=== PATIENT | male | born 1970 | race Hispanic/Latino ===

== ENCOUNTER 2018-06-13 23:35 | Emergency (ER) | payer OTHER ==
[~2018-06-13] VITALS: Ht 170.2 cm; Wt 179.2 kg
--- OUTSIDE RECORDS SUMMARY | 2018-06-13 23:38 | XMS REPORT ---
Author Author [facility] Address Unknown Phone Unavailable Care Team Providers [facility] [employer] Name Role Phone Unavailable Unavailable Problems This patient has no known problems. Allergies, Adverse Reactions, Alerts This patient has no known allergies or adverse reactions. Medications This patient has no known medications. Encounters Start Date/Time End Date/Time Encounter Type Admission Type Attending [facility] Care Department Encounter ID [id number] 16:05:04 Inpatient [facility] [id number] 2017-03-21 00:00:00 Inpatient [facility] [id number] 2017-03-21 00:00:00 Inpatient [facility] [id number] 2018-04-27 00:00:00 2018-04-27 00:00:00 Outpatient [facility] [id number] 2018-04-11 10:22:32 2018-04-11 10:22:32 Outpatient [facility] [id number] 2018-04-04 11:14:21 2018-04-04 11:14:21 Outpatient [facility] [id number] 2018-03-28 13:26:22 2018-03-28 13:26:22 Outpatient [facility] [id number] 2018-03-21 10:56:46 2018-03-21 10:56:46 Outpatient [facility] [id number] 2018-03-14 00:00:00 2018-03-14 00:00:00 Outpatient [facility] [id number] 2018-03-03 00:00:00 2018-03-03 00:00:00 Outpatient [facility] [id number] 2018-02-22 15:58:47 2018-02-22 15:58:47 Outpatient [facility] [id number] 2018-01-26 00:00:00 2018-01-26 00:00:00 Outpatient [facility] [id number] 2017-12-15 00:00:00 2017-12-15 00:00:00 Outpatient [facility] [id number] 2017-11-21 00:00:00 2017-11-21 00:00:00 Outpatient [facility] [id number] 2017-11-07 15:07:01 2017-11-07 15:07:01 Outpatient [facility] [id number] 2017-11-04 00:00:00 2017-11-04 00:00:00 Outpatient [facility] [id number] 2017 12:44:35 2017 12:44:35 Emergency [facility] [id number] 2017 11:00:23 2017 11:00:23 Inpatient [facility] [id number] 2017-10-14 14:05:53 2017-10-14 14:05:53 Emergency [facility] [id number] 2017-10-14 11:40:52 2017-10-14 11:40:52 Emergency [facility] [id number] 2017-10-12 15:24:13 2017-10-12 15:24:13 Outpatient [facility] [id number] 2017-07-27 00:00:00 2017-07-27 00:00:00 Outpatient [facility] [id number] 2017-06-03 14:18:41 2017-06-03 14:18:41 Outpatient [facility] [id number] 2017-06-02 15:20:29 2017-06-02 15:20:29 Outpatient [facility] [id number] 2017-05-05 09:23:41 2017-05-05 09:23:41 Emergency [facility] [id number] 2017-05-05 08:32:44 2017-05-05 08:32:44 Emergency [facility] [id number] 2017-04-11 00:00:00 2017-04-11 00:00:00 Outpatient [facility] [id number] 2017-04-01 00:00:00 2017-04-01 00:00:00 Outpatient [facility] [id number] 2017-03-31 12:28:39 2017-03-31 12:28:39 Outpatient [facility] [id number] 2017-03-31 10:46:04 2017-03-31 10:46:04 Outpatient [facility] [id number] 2017-03-23 15:39:37 2017-03-23 00:00:00 Inpatient [facility] [id number] 2017-03-18 09:56:26 2017-03-18 09:56:26 Outpatient [facility] [id number] 2017-03-18 05:59:51 2017-03-18 05:59:51 Emergency [facility] [id number] 2017-03-18 03:03:05 2017-03-18 03:03:05 Inpatient [facility] [id number] 2017-02-25 00:00:00 2017-02-25 00:00:00 Outpatient [facility] [id number] 2017-02-21 00:00:00 2017-02-21 00:00:00 Outpatient [facility] [id number] 2017-02-18 11:23:21 2017-02-18 11:23:21 Outpatient [facility] [id number] 2017-02-14 00:00:00 2017-02-14 00:00:00 Outpatient [facility] [id number] 2017-01-13 00:00:00 2017-01-13 00:00:00 Outpatient [facility] [id number] 2017-01-06 00:00:00 2017-01-06 00:00:00 Outpatient [facility] [id number] 2017-01-03 00:00:00 2017-01-03 00:00:00 Outpatient [facility] [id number] 2016-10-04 15:39:58 2016-10-04 15:39:58 Outpatient [facility] [id number] 2015-03-24 11:46:04 2015-03-24 11:46:04 Outpatient [facility] [id number]
[2018-06-14] MEDS ORDERED: RIVAROXABAN 20 MG TABLET PO ONE
[2018-06-14 00:22] LABS: BASOPHILS % 0.4 % (0.0-1.0); EOSINOPHILS # (AUTO) 0.3 (0.0-0.4); HEMATOCRIT 44.9 % (38.2-49.6); HEMOGLOBIN 13.8 g/dL (14.0-18.0); LYMPHOCYTES % 20.9 % (18.0-39.1); MEAN CORPUSCULAR HEMOGLOBIN 27.4 pg (28-32); MEAN CORPUSCULAR HGB CONC 30.7 g/dL (31-35); MEAN CORPUSCULAR VOLUME 89.3 fL (81-99); MONOCYTES # (AUTO) 0.9 (0.2-0.8); MONOCYTES % 9.6 % (4.4-11.3); NEUTROPHILS # (AUTO) 6.4 (2.1-6.9); NEUTROPHILS % 65.6 % (38.7-80.0); PLATELET COUNT 219 x10e3/uL (140-360); RED BLOOD COUNT 5.03 x10e6/uL (4.3-5.7); RED CELL DISTRIBUTION WIDTH 15.1 % (11.7-14.4)
[2018-06-14 00:35] LABS: ALANINE AMINOTRANSFERASE 30 IU/L (0-55); ALBUMIN 3.4 g/dL (3.5-5.0); ALKALINE PHOSPHATASE 101 IU/L (40-150); BLOOD UREA NITROGEN 22 mg/dL (7-26); BUN/CREATININE RATIO 20 (6-25); CALCIUM 9.5 mg/dL (8.4-10.2); CARBON DIOXIDE 28 mmol/L (22-29); CHLORIDE 100 mmol/L (98-107); CREATINE KINASE 355 IU/L (30-200); CREATININE, SERUM 1.11 mg/dL (0.72-1.25); EST GLOMERULAR FILTRATION RATE > 60 ML/MIN (60-); GLUCOSE 115 mg/dL (74-118); SODIUM 138 mmol/L (136-145)
--- NOTE | 2018-06-14 01:04 | Diagnostic Imaging Report ---
EXAMINATION: CHEST SINGLE (PORTABLE) INDICATION: ^sob ^[id number] ^[id number] ^Y COMPARISON: None FINDINGS: AP view TUBES and LINES: None. LUNGS: Limited by body habitus. Lungs are well inflated. Central peribronchovascular thickening/cuffing and mild interstitial edema. PLEURA: No significant pleural effusion or pneumothorax. HEART AND MEDIASTINUM: The cardiomediastinal silhouette is enlarged. BONES AND SOFT TISSUES: No acute osseous lesion. Soft tissues are unremarkable. UPPER ABDOMEN: No free air under the diaphragm. IMPRESSION: Enlarged cardiac silhouette, central vascular congestion, and mild interstitial edema. Signed by: Dr. Hernandez Fraser MD on 06/14/2018 1:01 AM
[2018-06-14] MEDS ORDERED: FUROSEMIDE INJ 10 MG/ML 4 ML VIAL IV ONE (01:30)
== END 2018-06-14 01:40 | disposition home or self-care (01) ==
LOC: ER 23:35
DX: R06.00 Dyspnea, unspecified (principal); I50.22 Chronic systolic (congestive) heart failure; I50.1 Left ventricular failure, unspecified; I27.9 Pulmonary heart disease, unspecified
CPT/HCPCS: 36415; 71045; 80053; 82550; 82553; 83880; 84484; 85025; 93005; 99283; J1940

== ENCOUNTER 2018-08-19 10:01 | Emergency (ER) | payer OTHER ==
[~2018-08-19] VITALS: Ht 170.2 cm; Wt 181.4 kg
[2018-08-19] MEDS ORDERED: HYDROCODONE/APAP 10MG-325MG TAB PO ONE (10:30)
--- NOTE | 2018-08-19 10:43 | Diagnostic Imaging Report ---
LEFT ANKLE X-RAY - 3 VIEWS HISTORY: ^r/o fx ^[id number] ^[id number] COMPARISON: None available. FINDINGS: Bones: No acute displaced fracture. Osseous alignment is within normal limits. Joints: The joint spaces are well-maintained. Soft tissues: Soft tissue swelling surrounding the ankle. IMPRESSION: Soft tissue swelling surrounding the left ankle without acute bony abnormalities. Signed by: Dr. Johana Chang M.D. on 08/19/2018 10:40 AM
[2018-08-19 11:22] VITALS: BP 106/81
== END 2018-08-19 11:22 | disposition home or self-care (01) ==
LOC: ER 10:01
DX: S93.492A Sprain of other ligament of left ankle, initial encounter (principal); X50.1XXA Overexertion from prolonged static or awkward postures, initial encounter; Y92.008 Other place in unspecified non-institutional (private) residence as the place of occurrence of the external cause; I10 Essential (primary) hypertension; E78.5 Hyperlipidemia, unspecified; I48.91 Unspecified atrial fibrillation; M10.9 Gout, unspecified
CPT/HCPCS: 99283

== ENCOUNTER 2018-08-28 03:09 | Observation (INO) | payer OTHER ==
[~2018-08-28] VITALS: Ht 170.2 cm; Wt 194.1 kg
[2018-08-28] VITALS (9 sets, daily range): BP systolic 128–159; BP diastolic 70–89
[2018-08-28 03:48] LABS: BASOPHILS % 0.3 % (0.0-1.0); EOSINOPHILS # (AUTO) 0.3 (0.0-0.4); EOSINOPHILS % 2.8 % (0.0-6.0); HEMATOCRIT 44.2 % (38.2-49.6); HEMOGLOBIN 13.1 g/dL (14.0-18.0); LYMPHOCYTES # (AUTO) 2.2 (1.0-3.2); LYMPHOCYTES % 20.8 % (18.0-39.1); MEAN CORPUSCULAR HEMOGLOBIN 27.3 pg (28-32); MEAN CORPUSCULAR HGB CONC 29.6 g/dL (31-35); MEAN CORPUSCULAR VOLUME 92.1 fL (81-99); MONOCYTES % 9.7 % (4.4-11.3); NEUTROPHILS # (AUTO) 6.9 (2.1-6.9); NEUTROPHILS % 65.8 % (38.7-80.0); PLATELET COUNT 216 x10e3/uL (140-360); RED CELL DISTRIBUTION WIDTH 14.2 % (11.7-14.4)
[2018-08-28 04:07] LABS: ALANINE AMINOTRANSFERASE 30 IU/L (0-55); ALBUMIN 3.2 g/dL (3.5-5.0); ALBUMIN/GLOBULIN RATIO 0.8 (0.8-2.0); ALKALINE PHOSPHATASE 114 IU/L (40-150); ANION GAP 12.3 mmol/L (8-16); BLOOD UREA NITROGEN 22 mg/dL (7-26); BUN/CREATININE RATIO 19 (6-25); CALCIUM 9.6 mg/dL (8.4-10.2); CARBON DIOXIDE 31 mmol/L (22-29); CHLORIDE 99 mmol/L (98-107); CREATINE KINASE 334 IU/L (30-200); CREATININE, SERUM 1.15 mg/dL (0.72-1.25); EST GLOMERULAR FILTRATION RATE > 60 ML/MIN (60-); GLUCOSE 144 mg/dL (74-118); POTASSIUM 4.3 mmol/L (3.5-5.1); SODIUM 138 mmol/L (136-145)
[2018-08-28] MEDS ORDERED: ATORVASTATIN CA40 MG PO (04:12)
[2018-08-28] MEDS ORDERED: LEVOTHYROXINE25 MCG PO (04:12)
[2018-08-28] MEDS ORDERED: METOPROLOL SUCC50 MG PO (04:12)
[2018-08-28] MEDS ORDERED: LISINOPRIL20 MG PO (04:12)
[2018-08-28] MEDS ORDERED: SPIRONOLACTONE25 MG PO (04:12)
[2018-08-28] MEDS ORDERED: DIGOXIN125 MCG PO (04:12)
[2018-08-28] MEDS ORDERED: XARELTO20 MG PO (04:12)
[2018-08-28] MEDS ORDERED: ALLOPURINOL100 MG PO (04:12)
--- NOTE | 2018-08-28 04:14 | Diagnostic Imaging Report ---
EXAMINATION: CHEST 2 VIEWS INDICATION: ^CHEST PAIN ^[id number] ^[id number] ^Y COMPARISON: 06/14/2018 FINDINGS: PA and lateral views TUBES and LINES: None. LUNGS: Lungs are well inflated. Central vascular congestion. PLEURA: No pleural effusion or pneumothorax. HEART AND MEDIASTINUM: The cardiomediastinal silhouette is enlarged. BONES AND SOFT TISSUES: Degenerative changes of thoracic spine. Age indeterminate anterior wedge deformities of the lower thoracic/upper lumbar vertebral bodies. Soft tissues are unremarkable. UPPER ABDOMEN: No free air under the diaphragm. IMPRESSION: Enlarged cardiomediastinal silhouette and central vascular congestion. Signed by: Dr. Hernandez Fraser MD on 08/28/2018 4:10 AM
--- NOTE | 2018-08-28 04:26 | NUR ---
RESP CALLED FOR DUONEB TREATMENT
[2018-08-28] MEDS ORDERED: FUROSEMIDE INJ 10 MG/ML 4 ML VIAL IV ONE (04:30)
[2018-08-28] MEDS ORDERED: METHYLPREDNISOLONE SOD SUCC 125 MG/2ML VIAL IV ONE (04:30)
[2018-08-28] MEDS ORDERED: ALBUTEROL/IPRATROPIUM 3 ML NEB NEB ONE (04:30)
[2018-08-28] MEDS ORDERED: METHYLPREDNISOLONE SOD SUCC 125 MG/2ML VIAL ONE (04:31)
[2018-08-28] MEDS ORDERED: FUROSEMIDE INJ 10 MG/ML 2 ML VIAL ONE (04:32)
[2018-08-28] MEDS ORDERED: IPRATROPIUM BROMIDE 0.02% 2.5 ML NEB ONE (04:37)
[2018-08-28] MEDS ORDERED: ALBUTEROL SULF 0.083% NEB SOLN 3 ML NEB ONE (04:37)
[2018-08-28] MEDS ORDERED: FUROSEMIDE40 MG PO (04:39)
[2018-08-28] MEDS ORDERED: ASPIRIN 81 MG CHEW TAB PO ONE (04:45)
--- OUTSIDE RECORDS SUMMARY | 2018-08-28 04:52 | XMS REPORT | Clinical Summary ---
Author Author [facility] Organization [facility] Address Unknown Phone Unavailable Care Team Providers Care Blue Print Control Clerk Name Role Phone Roberto Carlos Vidales MD PCP Allergies No Known Allergies Medications End Date Status Medication Sig Dispensed Refills Start Date Active aspirin (ASPIRIN) 81 mg Chew and 90 tablet 3 chewable swallow 1 7 tabletIndications: Acute tablet by systolic CHF (congestive mouth daily. heart failure) Active furosemide (LASIX) 20 mg Take 3 180 tablet 1 tabletIndications: Acute tablets by 8 on chronic systolic heart mouth every failure, NYHA class 3 12 hours. Active BPAP DeviceIndications: Use device as 1 Device 0 Obesity hypoventilation directed. 8 syndrome, Obstructive Date of sleep apnea Study: 05/29/2015 Diagnosis: JERI 327.23, OHS with severe hypoventilati on during sleep AHI:90 SaO2 bryon: 77 BPAP Pressure: 24/18 cm H2O with heated humidifier: Yes with mask (fit to patient) and supplies as needed: Yes Chin Strap: Yes. Active spironolactone Take 1 tablet 90 tablet 3 (ALDACTONE) 25 mg by mouth 8 tabletIndications: Acute daily. on chronic systolic heart failure, NYHA class 3 Active digoxin (LANOXIN) 125 mcg Take 1 tablet 90 tablet 3 tabletIndications: Atrial by mouth 8 fibrillation with rapid daily. ventricular response Active lisinopril (PRINIVIL, Take 1 tablet 90 tablet 2 ZESTRIL) 20 mg by mouth 8 tabletIndications: Acute daily. systolic CHF (congestive heart failure) Active atorvastatin (LIPITOR) 40 Take 1 tablet 90 tablet 1 mg tabletIndications: by mouth at 8 Heart failure, chronic bedtime systolic nightly. Active levothyroxine (SYNTHROID) Take 1 tablet 90 tablet 3 25 mcg tabletIndications: by mouth 8 Acquired hypothyroidism every morning (before breakfast). Active metoprolol succinate Take 1 tablet 30 tablet 1 (TOPROL XL) 50 mg by mouth 8 extended release daily. tabletIndications: Atrial fibrillation with rapid ventricular response Active allopurinol (ZYLOPRIM) Take 2 60 tablet 1 100 mg tabletIndications: tablets by 8 Atrial fibrillation with mouth daily. rapid ventricular response Active warfarin (COUMADIN) 5 mg Take 1 tablet 50 tablet 1 tablet (5mg) on Mon 8 and Sun then take 1 and 1/2 tablet (7.5mg) the rest of the days of the week. 10/21/2017 Discontinued BPAP DeviceIndications: Use device as 1 Device 0 Obesity hypoventilation directed. 6 syndrome, Obstructive Date of sleep apnea Study: 05/29/2015 Diagnosis: JERI 327.23, OHS with severe hypoventilati on during sleep AHI:90 SaO2 bryon: 77 BPAP Pressure: 24/18 cm H2O with heated humidifier: Yes with mask (fit to patient) and supplies as needed: Yes Chin Strap: Yes. 2017 Discontinued polyethylene glycol Add lukewarm 4000 mL 0 (GOLYTELY) [id number] drinking 6 -5.86 gram oral water to the solutionIndications: On fill alphonse (4 anticoagulant therapy liters) and shake. Drink as directed by your doctor.. 11/11/2017 Discontinued levothyroxine (SYNTHROID) Take 1 tablet 90 tablet 3 25 mcg tabletIndications: by mouth 7 Acquired hypothyroidism every morning (before breakfast). 11/07/2017 Discontinued atorvastatin (LIPITOR) 40 Take 1 tablet 90 tablet 3 mg tabletIndications: by mouth at 7 Acute on chronic systolic bedtime heart failure, NYHA class nightly. 3 10/31/2017 Discontinued spironolactone Take 1 tablet 90 tablet 3 (ALDACTONE) 25 mg by mouth 7 tabletIndications: Acute daily. on chronic systolic heart failure, NYHA class 3 10/21/2017 Discontinued lisinopril (PRINIVIL, Take 1 tablet 90 tablet 2 ZESTRIL) 20 mg by mouth 7 tabletIndications: Acute daily. systolic CHF (congestive heart failure) 10/31/2017 Discontinued digoxin (LANOXIN) 125 mcg Take 1 tablet 90 tablet 3 tabletIndications: Atrial by mouth 7 fibrillation with rapid daily. ventricular response 10/21/2017 Discontinued metoprolol succinate Take 1 tablet 90 tablet 2 (TOPROL XL) 100 mg by mouth 7 extended release daily. tabletIndications: Atrial fibrillation with rapid ventricular response 10/21/2017 Discontinued colchicine (COLCRYS) 0.6 One tablet 45 tablet 0 mg tabletIndications: daily for 1 7 Gout, arthritis week with allopurinol and then stop it and take it only as need for acute gouty attack. 10/21/2017 Discontinued rivaroxaban (XARELTO) 20 Take 1 tablet 90 tablet 1 mg tabletIndications: by mouth 7 Atrial fibrillation with daily (with rapid ventricular dinner). response 10/21/2017 Discontinued pantoprazole (PROTONIX) Take 1 tablet 90 tablet 3 40 mg delayed release by mouth 7 tabletIndications: every morning Chronic gastric ulcer (before with hemorrhage breakfast). 10/21/2017 Discontinued furosemide (LASIX) 20 mg Take 3 180 tablet 1 tabletIndications: Acute tablets by 7 on chronic systolic heart mouth every failure, NYHA class 3 12 hours. 10/21/2017 Discontinued acetaminophen-codeine Take 1 tablet 30 tablet 0 (TYLENOL/CODEINE #3) by mouth 2 7 300-30 mg per times daily tabletIndications: S/P as needed for laparoscopic Pain. cholecystectomy 10/21/2017 Discontinued allopurinol (ZYLOPRIM) Take 2 180 tablet 1 100 mg tabletIndications: tablets by 7 Gout involving toe of mouth daily. left foot, unspecified cause, unspecified chronicity 2017 Discontinued predniSONE (DELTASONE) 10 Take 4 tabs 30 tablet 0 mg tabletIndications: daily for 3 8 Acute cholecystitis days then 3 tabs daily for 3 days then 2 tabs daily for 3 days then 1 day daily for 3 days then stop.. 10/21/2017 Discontinued HYDROcodone-acetaminophen Take 1 tablet 40 tablet 0 (NORCO) 10-325 mg by mouth 8 tabletIndications: Acute every 6 hours pain of left knee as needed for Pain. [facility]# [id number] 10/21/2017 Discontinued cephALEXin (KEFLEX) 500 Take 1 40 capsule 0 mg capsuleIndications: capsule by 8 Cellulitis of right lower mouth 4 times extremity daily for 10 days. 02/22/2018 Discontinued allopurinol (ZYLOPRIM) Take 2 60 tablet 1 100 mg tabletIndications: tablets by 8 Cellulitis of right lower mouth daily. leg 10/31/2017 clindamycin (CLEOCIN) 150 Take 3 90 capsule 0 mg capsuleIndications: capsules by 8 Cellulitis of right lower mouth 3 times leg daily for 10 days. 10/31/2017 Discontinued lisinopril (PRINIVIL, Take 1 tablet 90 tablet 2 ZESTRIL) 20 mg by mouth 8 tabletIndications: Acute daily. systolic CHF (congestive heart failure) 02/22/2018 Discontinued metoprolol succinate Take 1 tablet 30 tablet 1 (TOPROL XL) 50 mg by mouth 8 extended release daily. tabletIndications: Atrial fibrillation with rapid ventricular response 02/22/2018 Discontinued rivaroxaban (XARELTO) 20 Take 1 tablet 90 tablet 1 mg tabletIndications: by mouth 8 Atrial fibrillation with daily (with rapid ventricular dinner). response 03/14/2018 Discontinued rivaroxaban (XARELTO) 20 Take 1 tablet 90 tablet 1 mg tabletIndications: by mouth 8 Atrial fibrillation with daily (with rapid ventricular dinner). response 03/28/2018 Discontinued warfarin (COUMADIN) 5 mg Take 1 tablet 30 tablet 0 tablet by mouth 8 daily for 30 days. 04/04/2018 Discontinued warfarin (COUMADIN) 5 mg Take 1 and 35 tablet 0 tablet 1/2 tablet 8 (7.5mg) by mouth on Tu and 1 tablet (5mg) the rest of the week. 04/11/2018 Discontinued warfarin (COUMADIN) 5 mg Take 1 and 45 tablet 1 tablet 1/2 tablet 8 (7.5mg) by mouth on , Tue, and Th and 1 tablet (5mg) the rest of the week.. Active Problems Problem Noted Date Infection 2017 Cellulitis of right lower extremity 10/14/2017 Acute pain of left knee 05/05/2017 Gout, arthritis 07/01/2016 Essential hypertension 05/23/2013 Iron deficiency anemia 04/12/2012 Overview: 07/14/12 - Received request for outside patient service (Video Capsule Endoscopy) from Dr. Mandie Meeks. EGD & Colonoscopy done on 10/03/09. Meets criteria for outsourcing of procedure. Approved for scheduling Video Capsule Endoscopy @ [facility]. Physician order, demographics & clinical information faxed to [facility] Scheduling Department. Preeti Smart RN # [id number] 07/18/12- spoke to patient, informed of the scheduled VCE 08/01/12@07:00; reconfirmed home address; processed certified mail with all the needed informations for the procedure. Chela Benson [id number] 08/14/12 - received capsule report today after reading by Dr. Jeramy Alvarez @ [facility] & being placed in the Media tab of this record. Dr. Mandie Meeks Rider included in the e-mail from [facility]. Preeti Smart RN # [id number] Obesity, morbid (more than 100 lbs over ideal weight or BMI > 40) 10/08/2009 Tobacco dependence 10/08/2009 Lower extremity edema Gastric ulcer Left ventricular dilatation Cardiomegaly Pulmonary edema Knee effusion, right Heart failure, chronic systolic Cardiomyopathy Chronic gout without tophus Atrial fibrillation, chronic Current use of ocean transportation intermediary anticoagulation JERI (obstructive sleep apnea) Hypothyroidism Morbid obesity with BMI of 60.0-69.9, adult Cellulitis of right lower leg Cellulitis and abscess of leg Resolved Problems Problem Noted Date Resolved Date RUQ pain 03/18/2017 2017 Calculus of gallbladder with acute cholecystitis without obstruction 03/18/2017 2017 Cholecystitis 03/18/2017 2017 Overview: Added automatically from request for surgery [id number] Acute exacerbation of congestive heart failure 06/30/2016 2017 Acute on chronic systolic heart failure, NYHA class 3 06/29/2016 2017 Dyspnea 06/29/2016 2017 Chest pain in adult 06/28/2016 2017 Hematochezia 12/04/2015 2017 Overview: S/p colonoscopy (11/2015). Recommend repeating colonoscopy in 10yrs and forgo annual FIT in the interim. Rectal bleeding 12/01/2015 2017 Chest pain 02/28/2015 2017 Acute systolic CHF (congestive heart failure) 02/07/2015 2017 Atrial fibrillation with rapid ventricular response 02/06/2015 2017 Acute on chronic systolic congestive heart failure 2017 Shortness of breath 2017 Acute idiopathic gout of right knee 2017 Pre-operative evaluation for tubal ligation 2017 Hyponatremia 2017 Encounters Care Team Description Date Type Specialty Lroa Todd, RPH Anticoagulation monitoring, INR range 2-3 (Primary Dx) 04/11/2018 Office Visit Clinical Pharmacy Lora Todd, RPH Anticoagulation monitoring, INR range 2-3 (Primary Dx) 04/04/2018 Office Visit Clinical Pharmacy Lora Todd, RPH Anticoagulation monitoring, INR range 2-3 (Primary Dx) 03/28/2018 Office Visit Clinical Pharmacy 03/28/2018 Travel Lora Todd, RPH Anticoagulation monitoring, INR range 2-3 (Primary Dx) 03/21/2018 Office Visit Clinical Pharmacy Lora Todd, RPH 03/14/2018 Orders Only Clinical Pharmacy Lorena Vigil MD Atrial fibrillation with rapid ventricular response, stable, on anticoagulation 03/14/2018 Refill [facility] Lorena Vigil MD Atrial fibrillation with rapid ventricular response, stable, on anticoagulation 03/14/2018 Refill Family Practice Preeti Patel RN Information Only 03/03/2018 Telephone [facility] Roberto Carlos Vidales MD Joad, Sabaa S, MD Need for influenza vaccination (Primary Dx); Atrial fibrillation with rapid ventricular response, stable, on anticoagulation; History of gout 02/22/2018 Office Visit Family Practice Roberto Carlos Vidales MD Acquired hypothyroidism 11/11/2017 Refill [facility] Roberto Carlos Vidales MD Joad, Sabaa S, MD Prediabetes (Primary Dx); Heart failure, chronic systolic; Hypotension due to drugs 11/07/2017 Office Visit Family Practice Ayala Zimmerman, RPH Anticoagulation 11/02/2017 Telephone Roberto Carlos Vidales MD Acute on chronic systolic heart failure, NYHA class 3; Atrial fibrillation with rapid ventricular response, stable, on anticoagulation; Acute systolic CHF (congestive heart failure) 10/31/2017 Refill Family Practice Alonso Baylee York Transitional Planning 10/27/2017 Telephone Social Work Roberto Carlos Vidales MD Atrial fibrillation with rapid ventricular response, stable, on anticoagulation; Acute on chronic systolic heart failure, NYHA class 3 10/26/2017 Refill Family Practice Clive Verde Transitional Planning 10/25/2017 Telephone Social Work Bob Carranza MD Bull, Joan M, MD Cellulitis of right lower leg (Primary Dx); Heart failure, chronic systolic; Acute on chronic systolic heart failure, NYHA class 3; Acute systolic CHF (congestive heart failure); Atrial fibrillation with rapid ventricular response, stable, on anticoagulation; Obesity hypoventilation syndrome; Obstructive sleep apnea 2017 Hospital - Encounter 10/21/2017 Clayton Noe MD Cellulitis of right lower extremity (Primary Dx); Lower extremity edema 10/14/2017 Emergency Emergency Medicine Sharri Garza MD Hypocalcemia (Primary Dx); Acute on chronic systolic heart failure, NYHA class 3; BMI 60.0-69.9, adult; Prediabetes 10/12/2017 Office Visit Family Practice after 08/27/2017 Immunizations Name Dates Previously Given Next Due Influenza Vaccine 04/01/2015 (Deferred: Patient Refused), 03/01/2015 (Deferred: Patient Refused - patient does not want the flu vaccine for now, he stated he will get it in his PCP appoinment), 02/21/2013, 03/06/2012 Influenza Vaccine, 03/31/2017 (Deferred: Patient Refused) Seasonal, Injectable PPV 23 Pneumococcal 07/26/2010 Polysaccaride Tdap Tetanus, diphtheria, 03/04/2015 acellular pertussis Vaccine Family History Medical History Relation Name Comments Genetic Father Heart Father Diabetes Mother Relation Name Status Comments Brother Alive Brother Alive Brother Alive Brother Alive Brother Alive Brother Alive Brother Alive Brother Alive Father Alive Maternal Grandfather Maternal Grandmother Mother Alive Paternal Grandfather Paternal Grandmother Sister Alive x3 Sister Alive Sister Alive Sister Alive Sister Alive Son Alive x3 Son Alive Son Alive Social History Date Tobacco Use Types Packs/Day Years Used Quit: 01/05/2012 Current Some Day Smoker Cigarettes 0.25 Smokeless Tobacco: Snuff Current User Tobacco Cessation: Ready to Quit: No; Counseling Given: No Alcohol Use Drinks/Week oz/Week Comments Yes 0 Glasses of 7.2 wine 12 Cans of beer 0 Shots of liquor Sex Assigned at Date Recorded Not on file Industry Job Start Date Occupation Not on file Not on file Not on file Travel End Travel History Travel Start No recent travel history available. Last Filed Vital Signs Time Taken Vital Sign Reading 04/11/2018 10:22 AM BUSINESS APPLICATIONS MANAGER Blood Pressure 136/89 04/11/2018 10:22 AM BUSINESS APPLICATIONS MANAGER Pulse 81 04/11/2018 10:22 AM BUSINESS APPLICATIONS MANAGER Temperature 36.6 C (97.9 F) 04/11/2018 10:22 AM BUSINESS APPLICATIONS MANAGER Respiratory Rate 18 10/21/2017 12:32 AM CDT Oxygen Saturation 98% - Inhaled Oxygen - Concentration 04/11/2018 10:22 AM BUSINESS APPLICATIONS MANAGER Weight 187.8 kg (414 lb) 04/11/2018 10:22 AM BUSINESS APPLICATIONS MANAGER Height 170.2 cm (5' 7") 04/11/2018 10:22 AM BUSINESS APPLICATIONS MANAGER Body Mass Index 64.84 Plan of Treatment Not on file Procedures Comments Procedure Name Priority Date/Time Associated Diagnosis PTINR POC Routine 04/11/2018 10:43 AM BUSINESS APPLICATIONS MANAGER PTINR POC Routine 04/04/2018 11:34 AM BUSINESS APPLICATIONS MANAGER PTINR POC Routine 03/28/2018 1:42 PM BUSINESS APPLICATIONS MANAGER PHOSPHORUS STAT 10/21/2017 12:50 PM CDT GLUCOSE POC Routine 10/21/2017 11:23 AM CDT GLUCOSE POC Routine 10/21/2017 7:29 AM CDT MAGNESIUM Routine 10/21/2017 4:20 AM CDT PHOSPHORUS Routine 10/21/2017 4:20 AM CDT CALCIUM, IONIZED Routine 10/21/2017 4:20 AM CDT BASIC METABOLIC PANEL Routine 10/21/2017 4:20 AM CDT CBC Routine 10/21/2017 4:20 AM CDT GLUCOSE POC Routine 10/20/2017 8:18 PM CDT GLUCOSE POC Routine 10/20/2017 4:34 PM CDT HEMOGLOBIN A1C STAT 10/20/2017 12:10 PM CDT GLUCOSE POC Routine 10/20/2017 11:49 AM CDT GLUCOSE POC Routine 10/20/2017 7:18 AM CDT BASIC METABOLIC PANEL Routine 10/20/2017 4:46 AM CDT CBC/DIFF Routine 10/20/2017 4:46 AM CDT GLUCOSE POC Routine 10/19/2017 9:11 PM CDT GLUCOSE POC Routine 10/19/2017 4:23 PM CDT 12 LEAD EKG Routine 10/19/2017 12:07 PM CDT GLUCOSE POC Routine 10/19/2017 11:57 AM CDT GLUCOSE POC Routine 10/19/2017 7:26 AM CDT URIC ACID Routine 10/19/2017 5:08 AM CDT FREE T4 Routine 10/19/2017 5:08 AM CDT MAGNESIUM Routine 10/19/2017 5:08 AM CDT PHOSPHORUS Routine 10/19/2017 5:08 AM CDT BASIC METABOLIC PANEL Routine 10/19/2017 5:08 AM CDT CBC/DIFF Routine 10/19/2017 5:08 AM CDT GLUCOSE POC Routine 2017 9:27 PM CDT SEQUENTIAL COMPRESSION STAT 2017 PUMP 7:53 PM CDT IP CONSULT WITH INSIGHT Routine 2017 6:20 PM CDT GLUCOSE POC Routine 2017 4:46 PM CDT XRAY CHEST 1 VIEW Routine 2017 Heart failure, chronic 4:22 PM CDT systolic CRP, HIGH SENS Routine 2017 2:19 PM CDT SED RATE Routine 2017 2:19 PM CDT TSH Routine 2017 2:19 PM CDT MAGNESIUM Routine 2017 2:19 PM CDT PHOSPHORUS Routine 2017 2:19 PM CDT CALCIUM, IONIZED Routine 2017 2:19 PM CDT COMPREHENSIVE METABOLIC Routine 2017 PANEL(DBIL NOT INCLUDED) 2:19 PM CDT XRAY TIBIA AND FIBULA 2 STAT 2017 Cellulitis of right lower VIEWS 12:45 PM CDT leg VBG POC Routine 2017 11:56 AM CDT BMP POC Routine 2017 11:56 AM CDT CBC/DIFF Routine 2017 11:47 AM CDT HIV-1/HIV-2 ROUTINE STAT 2017 SCREENING 11:47 AM CDT BLOOD CULTURE STAT 2017 11:47 AM CDT BLOOD CULTURE STAT 2017 11:47 AM CDT DUPLEX DOPPLER LOWER STAT 10/14/2017 EXTREMITY VENOUS, 3:22 PM CDT UNILATERAL OR LIMITED BMP POC Routine 10/14/2017 2:10 PM CDT VBG POC Routine 10/14/2017 2:10 PM CDT CKMB, REFLEX Routine 10/14/2017 2:00 PM CDT CBC/DIFF STAT 10/14/2017 2:00 PM CDT CK, TOTAL STAT 10/14/2017 2:00 PM CDT BMP POC Routine 10/12/2017 4:04 PM CDT after 08/27/2017 Results * PTINR POC (04/11/2018 10:43 AM BUSINESS APPLICATIONS MANAGER) Only the most recent of 3 results within the time period is included. PT POC 14.9 (H) 10.9 - 13.0 Seconds [facility] INR POC 1.3 Therap Range [facility] Comment: SUGGESTED THERAPEUTIC RANGES: INR 2.0-3.0 for MODERATE INTENSITY ANTICOAGULATION INR 2.5-3.5 for HIGH INTENSITY ANTICOAGULATION Performing Organization Address [facility] Phone Number [facility] * PHOSPHORUS (10/21/2017 12:50 PM CDT) Only the most recent of 4 results within the time period is included. Phosphorus 4.2 2.5 - 4.9 mg/dL [facility] MAIN-STATION 2 Specimen Blood Performing Organization Address [facility] Phone Number [email or web address] MAIN-STATION 2 * GLUCOSE POC (10/21/2017 11:23 AM CDT) Only the most recent of 12 results within the time period is included. Glucose POC 100 74 - 106 mg/dL [facility] MAIN-STATION 1 Performing Organization Address City/[facility] Phone Number [email or web address] MAIN-STATION 1 * MAGNESIUM (10/21/2017 4:20 AM CDT) Only the most recent of 3 results within the time period is included. Magnesium 2.3 1.8 - 2.4 mg/dL [facility] MAIN-STATION 4 Specimen Blood Performing Organization Address [facility] Phone Number [email or web address] MAIN-STATION 4 * CALCIUM, IONIZED (10/21/2017 4:20 AM CDT) Only the most recent of 2 results within the time period is included. Calcium, 1.11 (L) 1.15 - 1.29 mmol/L [facility] Ionized MAIN-STATION 2 Specimen Blood Performing Organization Address [facility] Phone Number [facility] MAIN-STATION 2 * CBC (10/21/2017 4:20 AM CDT) WBC 11.1 4.5 - 12.0 K/uL [facility] MAIN-STATION 2 RBC 4.65 4.60 - 6.20 M/uL [facility] MAIN-STATION 2 Hemoglobin 12.8 (L) 14.0 - 18.0 g/dL [facility] MAIN-STATION 2 Hematocrit 43.1 40.0 - 54.0 % [facility] MAIN-STATION 2 MCV 93 (H) 82 - 92 fL [facility] MAIN-STATION 2 MCH 27.5 27.0 - 31.0 pg [facility] MAIN-STATION 2 MCHC 29.7 (L) 32.0 - 36.0 g/dL [facility] MAIN-STATION 2 RDW 46.7 (H) 35.1 - 43.9 fL [facility] MAIN-STATION 2 Platelet 275 150 - 400 K/uL [facility] MAIN-STATION 2 Mean Platelet 9.9 9.4 - 12.4 fL [facility] Volume MAIN-STATION 2 Percent NRBC 0.0 [facility] MAIN-STATION 2 Absolute NRBC 0.00 [facility] MAIN-STATION 2 Specimen Blood Performing Organization Address [facility] Phone Number [facility] MAIN-STATION 2 * BASIC METABOLIC PANEL (10/21/2017 4:20 AM CDT) Only the most recent of 3 results within the time period is included. CO2 32 21 - 32 mmol/L [facility] MAIN-STATION 4 Chloride 96 (L) 98 - 107 mmol/L [facility] MAIN-STATION 4 Potassium 4.3 3.50 - 5.10 mmol/L [facility] MAIN-STATION 4 Sodium 134 (L) 136 - 145 mmol/L [facility] MAIN-STATION 4 Glucose 94 70 - 99 mg/dL [facility] MAIN-STATION 4 Urea Nitrogen 18 7 - 18 mg/dL [facility] MAIN-STATION 4 Creatinine 0.99 0.60 - 1.30 mg/dL [facility] MAIN-STATION 4 Anion Gap 6 [facility] MAIN-STATION 4 Calcium 9.1 8.50 - 10.20 mg/dL [facility] MAIN-STATION 4 GFR, Estimated >60 mL/min/1.73 m2 [facility] MAIN-STATION 4 GFR, Estim, >60 mL/min/1.73 m2 [facility] Afr-Am MAIN-STATION 4 Specimen Blood Performing Organization Address [facility]/Zipcode Phone Number MISYS [facility] MAIN-STATION 4 * HEMOGLOBIN A1C (10/20/2017 12:10 PM CDT) Hemoglobin A1c 6.5 (H) 4.3 - 6.1 % [facility] MAIN-STATION 1 Est Average 139.9 mg/dL [facility] MAIN-STATION 1 Specimen Blood Performing Organization Address [facility] Phone [facility] MAIN-STATION 1 * CBC/DIFF (10/20/2017 4:46 AM CDT) Only the most recent of 4 results within the time period is included. WBC 10.3 4.5 - 12.0 K/uL [facility] MAIN-STATION 2 RBC 4.47 (L) 4.60 - 6.20 M/uL [facility] MAIN-STATION 2 Hemoglobin 12.4 (L) 14.0 - 18.0 g/dL [facility] MAIN-STATION 2 Hematocrit 42.7 40.0 - 54.0 % [facility] MAIN-STATION 2 MCV 96 (H) 82 - 92 fL [facility] MAIN-STATION 2 MCH 27.7 27.0 - 31.0 pg [facility] MAIN-STATION 2 MCHC 29.0 (L) 32.0 - 36.0 g/dL [facility] MAIN-STATION 2 RDW 48.4 (H) 35.1 - 43.9 fL [facility] MAIN-STATION 2 Platelet 262 150 - 400 K/uL [facility] MAIN-STATION 2 Mean Platelet 10.3 9.4 - 12.4 fL [facility] Volume MAIN-STATION 2 Percent NRBC 0.0 [facility] MAIN-STATION 2 Absolute NRBC 0.00 [facility] MAIN-STATION 2 Neutrophil 64.6 34.0 - 67.9 % [facility] MAIN-STATION 2 Lymphocyte 20.3 (L) 21.8 - 50.0 % [facility] MAIN-STATION 2 Monocyte 8.9 5.3 - 12.0 % [facility]IN-ST[facility] 2 Eosinophil 2.0 0.8 - 5.0 % [facility] 2 Basophil 0.3 0.2 - 1.2 % [facility] 2 Pct Immat Gran 3.9 (H) 0.0 - 0.5 [facility] MAIN-STATION 2 Neutrophil, Abs 6.66 (H) 1.78 - 5.36 K/uL [facility]IN[facility]ST[facility] 2 Lymphocyte, Abs 2.09 1.32 - 3.57 K/uL [facility] 2 Monocyte, Abs 0.92 (H) 0.30 - 0.82 K/uL [facility]IN-ST[facility] 2 Eosinophil, Abs 0.21 0.04 - 0.54 K/uL [facility]IN[facility]ST[facility] 2 Basophil, Abs 0.03 0.01 - 0.08 K/uL [facility]IN[facility]ST[facility] 2 Absol Immat 0.40 (H) 0.00 - 0.03 K/uL [facility] Gran MAIN-STATION 2 Specimen Blood Performing Organization Address [facility] Phone Number MISYS [facility] MAIN-STATION 2 * 12 LEAD EKG (10/19/2017 12:07 PM CDT) 12 LEAD EKG FOR [facility]:2017-10-19 Pat Name: LEONARD MONACO Department: Room: Gender: M Home Health Provider: Rocio CASTRO :[id number]- Requested By: Order Number: R marcelino ULRICH: John Estrella Measurements Intervals [place] Rate: 69 P: DC: 0 QRS: 58 QRSD: 104 T: 97 QT: 366 QTc:394 Interpretive Statements ATRIAL FIBRILLATION POOR R-WAVE PROGRESSION NON-SPECIFIC ST-SEGMENT AND T-WAVE ABNORMALITIES Electronically Signed On 10-19-17 16:13:57 CDT by John Estrella Performing Organization Address City/[facility] Phone Number SMS * FREE T4 (10/19/2017 5:08 AM CDT) Free T4 0.87 0.61 - 1.18 ng/dl [facility] MAIN-STATION 1 Specimen Blood Performing Organization Address City/[facility] Cent[facility] Phone Number MISYS [facility] MAIN-STATION 1 * URIC ACID (10/19/2017 5:08 AM CDT) Uric acid 8.0 (H) 3.5 - 7.2 mg/dL [facility] MAIN-STATION 4 Specimen Blood Performing Organization Address [facility] Phone Number MISYS [facility] MAIN-STATION 4 * XRAY CHEST 1 VIEW (2017 4:22 PM CDT) Impressions Performed At IMPRESSION: [facility] *Pulmonary vascular congestion. *Otherwise no acute pleuropulmonary abnormality. Signed By: Matthew Gupta MD, 2017 4:29 PM Narrative Performed At XRAY CHEST 1 VIEW [facility] DATE: 2017 4:05 PM CLINICAL INDICATION: CHF COMPARISON: None TECHNIQUE: A single AP view of the chest is obtained using portable technique, and submitted for interpretation. DISCUSSION: The lungs appear clear. Costophrenic angles are sharp. No pleural effusion is demonstrated. No pneumothorax in the position of the study. The cardiothoracic ratio is 0.55 which is within normal limits. Hilar prominence and vascular cephalization persist. The bones demonstrate no destructive or traumatic lesion. Procedure Note Interface, Rad/Mammog In - 2017 5:19 PM CDT XRAY CHEST 1 VIEW DATE: 2017 4:05 PM CLINICAL INDICATION: CHF COMPARISON: None TECHNIQUE: A single AP view of the chest is obtained using portable technique, and submitted for interpretation. DISCUSSION: The lungs appear clear. Costophrenic angles are sharp. No pleural effusion is demonstrated. No pneumothorax in the position of the study. The cardiothoracic ratio is 0.55 which is within normal limits. Hilar prominence and vascular cephalization persist. The bones demonstrate no destructive or traumatic lesion. IMPRESSION IMPRESSION: * Pulmonary vascular congestion. * Otherwise no acute pleuropulmonary abnormality. Signed By: Matthew Gupta MD, 2017 4:29 PM Performing Organization Address [facility] Phone Number SMS * COMPREHENSIVE METABOLIC PANEL(DBIL NOT INCLUDED) (2017 2:19 PM CDT) Albumin 2.9 (L) 3.4 - 5.0 g/dL [facility] MAIN-STATION 1 Calcium 9.0 8.50 - 10.20 mg/dL [facility] MAIN-STATION 1 CO2 33 (H) 21 - 32 mmol/L [facility] MAIN-STATION 1 Chloride 103 98 - 107 mmol/L [facility] MAIN-STATION 1 Creatinine 1.11 0.60 - 1.30 mg/dL [facility] MAIN-STATION 1 Glucose 98 70 - 99 mg/dL [facility] MAIN-STATION 1 Alk Phos 119 (H) 45 - 117 U/L [facility] MAIN-STATION 1 Potassium 5.0 3.50 - 5.10 mmol/L [facility] MAIN-STATION 1 Sodium 139 136 - 145 mmol/L [facility] MAIN-STATION 1 ALT 30 12 - 78 U/L [facility] MAIN-STATION 1 AST 19 15 - 37 U/L [facility] MAIN-STATION 1 Urea Nitrogen 19 (H) 7 - 18 mg/dL [facility] MAIN-STATION 1 T Bilirubin 0.3 0.2 - 1.0 mg/dL [facility] MAIN-STATION 1 T Protein 7.1 6.4 - 8.2 g/dL [facility] MAIN-STATION 1 GFR, Estimated >60 mL/min/1.73 m2 [facility] MAIN-STATION 1 GFR, Estim, >60 mL/min/1.73 m2 [facility] Afr-Am MAIN-STATION 1 Anion Gap 3 [facility] MAIN-STATION 1 Specimen Blood Performing Organization Address [facility] Phone Number [facility] MAIN-STATION 1 * CRP, HIGH SENS (2017 2:19 PM CDT) CRP, high sens 36.359 (H) <1.0 mg/dL MAIN-STATION 1 Specimen Blood Performing Organization Address [facility] Phone Number [facility] MAIN-STATION 1 * TSH (2017 2:19 PM CDT) TSH 1.44 0.57 - 3.74 uIU/mL MAIN-STATION 1 Specimen Blood Performing Organization Address [facility] Phone Number [facility] MAIN-STATION 1 * SED RATE (2017 2:19 PM CDT) Sed Rate 26 (H) <15 mm/Hr [facility] MAIN-STATION 4 Specimen Blood Performing Organization Address [facility] Phone Number [facility] MAIN-STATION 4 * XRAY TIBIA AND FIBULA 2 VIEWS (2017 12:45 PM CDT) Impressions Performed At IMPRESSION: SMS Soft tissue swelling of the right lower leg without emphysema or underlying bony abnormality. Signed By: Matthew Gupta MD, 2017 1:20 PM Narrative Performed At RIGHT TIBIA FIBULA, 2 VIEWS. SMS DATE: 2017 12:46 PM CLINICAL INDICATION: Right lower leg cellulitis COMPARISON: None TECHNIQUE: Frontal and lateral views of the right tibia fibula are obtained and submitted for interpretation. DISCUSSION: No fracture or malalignment is demonstrated. No abnormal erosion or focal anomaly of the visualized bones is identified. The joint spaces are preserved. No evidence of joint effusion is noted. Surrounding soft tissues are diffusely swollen without abnormal gas. Procedure Note Interface, Rad/Mammog In - 2017 1:25 PM CDT RIGHT TIBIA FIBULA, 2 VIEWS. DATE: 2017 12:46 PM CLINICAL INDICATION: Right lower leg cellulitis COMPARISON: None TECHNIQUE: Frontal and lateral views of the right tibia fibula are obtained and submitted for interpretation. DISCUSSION: No fracture or malalignment is demonstrated. No abnormal erosion or focal anomaly of the visualized bones is identified. The joint spaces are preserved. No evidence of joint effusion is noted. Surrounding soft tissues are diffusely swollen without abnormal gas. IMPRESSION IMPRESSION: Soft tissue swelling of the right lower leg without emphysema or underlying bony abnormality. Signed By: Matthew Gupta MD, 2017 1:20 PM Performing Organization Address City/State/[facility] Center[facility] Phone Number SMS * VBG POC (2017 11:56 AM CDT) Only the most recent of 2 results within the time period is included. pH, Vipul POC 7.32 (L) 7.33 - 7.43 [facility] MAIN-STATION 1 pCO2, Vipul POC 64.7 (H) 38.0 - 50.0 mm Hg [facility] MAIN-STATION 1 pO2, Vipul POC 27 (L) 50 - 75 mm Hg [facility] MAIN-STATION 1 Base Excess, 5 mmol/L [facility] Vipul POC MAIN-STATION 1 HCO3, Vipul POC 33.2 (H) 22.0 - 26.0 mmol/L [facility] MAIN-STATION 1 % Sat, Vipul POC 43 (L) 60 - 85 % [facility] MAIN-STATION 1 Lactic Acid, 1.16 0.4 - 2.0 mmol/L [facility] Vipul POC MAIN-STATION 1 TCO2, VIPUL POC 35 (H) 21 - 32 mmol/L [facility] MAIN-STATION 1 Performing Organization Address City/[facility] Phone Number MISYS [facility]IN-STATION 1 * BMP POC (2017 11:56 AM CDT) Only the most recent of 3 results within the time period is included. CO2 POC 30 21 - 32 mmol/L [facility] MAIN-STATION 1 Chloride POC 97 (L) 98 - 107 mmol/L [facility] MAIN-STATION 1 Potassium POC 4.4 3.50 - 5.10 mmol/L [facility] MAIN-STATION 1 Sodium POC 141 136 - 145 mmol/L [facility] MAIN-STATION 1 Glucose POC 130 (H) 74 - 106 mg/dL [facility] MAIN-STATION 1 Urea Nitrogen 23 (H) 7 - 18 mg/dL [facility] MAIN-STATION 1 Creatinine POC 1.2 0.6 - 1.3 mg/dL [facility] MAIN-STATION 1 Calcium Ionized 1.19 1.15 - 1.29 mmol/L [facility] MAIN-STATION 1 Hemoglobin POC 15.0 14.0 - 18.0 g/dL [facility] MAIN-STATION 1 Hematocrit POC 44.0 40.0 - 54.0 % [facility] MAIN-STATION 1 GFR, Estimated >60 mL/min/1.73 m2 [facility] MAIN-STATION 1 GFR, Estim, >60 mL/min/1.73 m2 [facility] Afr-Am MAIN-STATION 1 Performing Organization Address [facility] Phone Number [facility] MAIN-STATION 1 * HIV-1/HIV-2 ROUTINE SCREENING (2017 11:47 AM CDT) Pathologist [facility] HIV-1/HIV-2 Negative NEG [facility] MAIN-STATION 2 Performing Organization Address [facility] Phone Number [facility] MAIN-STATION 2 * BLOOD CULTURE (2017 11:47 AM CDT) Only the most recent of 2 results within the time period is included. Spec Blood [facility] Description MAIN-STATION 2 Order Comments None [facility] MAIN-STATION 2 Culture No growth 5 days [facility] MICROBIOLOGY Report Status Final 10/23/2017 [facility] MICROBIOLOGY Specimen Blood bag - BLOOD Performing Organization Address [facility]/Zipcode Phone Number [place]ING [facility] MAIN-STATION 2 [facility] MICROBIOLOGY * DUPLEX DOPPLER LOWER EXTREMITY VENOUS, UNILATERAL OR LIMITED (10/14/2017 3:22 PM CDT) Impressions Performed At IMPRESSION: SMS 1.No deep venous thrombosis (DVT). This [facility] radiology report is a preliminary resident dictation until finalized by an attending.Changes to this preliminary report may occur in an additional preliminary or finalized version. Dictated By: Raul Feldman MD, 10/14/2017 3:28 PM I have reviewed the study and agree with the findings in this report. Signed By: Terra Kaplan MD, 10/14/2017 3:31 PM Narrative Performed At EXAM: US RIGHT LOWER EXTREMITY VENOUS DOPPLER SMS DATE: 10/14/2017 3:22 PM INDICATION: RLE edema, pain, warm ADDITIONAL INFORMATION: None. COMPARISON: None. TECHNIQUE: Multiplanar grayscale, color Doppler and spectral Doppler ultrasound of the right lower extremity veins. FINDINGS: Right Thigh Veins: Common Femoral: Patent. Femoral (SFV): Patent. Popliteal: Patent. Proximal Greater Saphenous: Patent. Deep Femoral Veins: Patent. Other: None. Procedure Note Interface, Rad/Mammog In - 10/14/2017 3:36 PM CDT EXAM: US RIGHT LOWER EXTREMITY VENOUS DOPPLER DATE: 10/14/2017 3:22 PM INDICATION: RLE edema, pain, warm ADDITIONAL INFORMATION: None. COMPARISON: None. TECHNIQUE: Multiplanar grayscale, color Doppler and spectral Doppler ultrasound of the right lower extremity veins. FINDINGS: Right Thigh Veins: Common Femoral: Patent. Femoral (SFV): Patent. Popliteal: Patent. Proximal Greater Saphenous: Patent. Deep Femoral Veins: Patent. Other: None. IMPRESSION IMPRESSION: 1. No deep venous thrombosis (DVT). This [facility] radiology report is a preliminary resident dictation until finalized by an attending. Changes to this preliminary report may occur in an additional preliminary or finalized version. Dictated By: Raul Feldman MD, 10/14/2017 3:28 PM I have reviewed the study and agree with the findings in this report. Signed By: Terra Kaplan MD, 10/14/2017 3:31 PM Performing Organization Address City/[facility] Phone Number SMS * CKMB, REFLEX (10/14/2017 2:00 PM CDT) CK-MB 2.2 0.6 - 6.3 ng/mL [facility] MAIN-STATION 1 CKMB Index 1.9 0 - 2.5 [facility] MAIN-STATION 1 Performing Organization Address City/[facility] Phone Number MISYS [facility] MAIN-STATION 1 * CK, TOTAL (10/14/2017 2:00 PM CDT) CK, Total 113 30 - 200 U/L [facility] MAIN-STATION 2 Specimen Blood Performing Organization Address City/State/Zipcode Phone Number MISYS [facility] MAIN-STATION 2 after 08/27/2017 Insurance Type Payer Benefit Subscriber ID Effective Phone Address Plan / Dates Group COMMERCIAL GENERIC COMMERCIAL xxxxxxxxxxx [id number] GENERIC resent OON (Work) Advance Directives For more information, please contact: [address] [address] Date Inactivated Comments Code Status Date Activated 10/21/2017 5:12 PM Full Code 2017 2:13 PM 03/24/2017 6:12 PM Full Code 03/18/2017 11:09 PM 07/01/2016 4:26 PM Full Code 06/28/2016 11:32 AM 04/30/2015 5:53 PM Full Code 04/29/2015 10:23 AM 02/07/2015 2:27 PM Full Code 02/06/2015 9:47 AM
--- NOTE | 2018-08-28 05:20 | NUR ---
RECEIVED PATIENT FROM EMERGENCY ROOM VIA STRETCHER. O2 AT 2L/MIN. PATIENT IS ALERT AND ORIENTED. MADE COMFORTABLE IN BED. ORIENTED TO BEDROOM. CALL LIGHT WITHIN REACHED AND ENCOURAGE TO USE FOR ASSISTANCE.
--- NOTE | 2018-08-28 06:00 | NUR ---
Laboratory staff Teresa made aware that patient's next cardiac marker is due at 11.15 am.
[2018-08-28] MEDS: LEVOTHYROXINE SODIUM 25 MCG TABLET PO SCH (07:30)
[2018-08-28] MEDS: FUROSEMIDE INJ 10 MG/ML 4 ML VIAL IV SCH ×2 (08:55→16:55)
[2018-08-28] MEDS: DIGOXIN 0.125 MG TAB PO SCH (08:56)
[2018-08-28] MEDS: METOPROLOL SUCCINATE 50 MG TAB XL PO SCH (08:56)
[2018-08-28] MEDS: ALLOPURINOL 100 MG TAB PO SCH (08:56)
[2018-08-28] MEDS: LISINOPRIL 20 MG TAB PO SCH (08:56)
[2018-08-28] MEDS ORDERED: RIVAROXABAN 20 MG TABLET PO SCH (09:00)
[2018-08-28] MEDS ORDERED: FUROSEMIDE 40 MG TAB PO SCH (09:00)
[2018-08-28 11:37] LABS: CREATINE KINASE MB 3.8 ng/mL (0-5.0)
--- NOTE | 2018-08-28 14:12 | NUR ---
SOCIAL WORK INITIAL ASSESSMENT Online Marketing Strategist to bedside to discuss plan of care with patient/family. CM/SW role and care transitions discussed. Anticipated discharge plan discussed along with duration of care. CM/SW discussed patients right to make decisions in care. CM/SW work hours given. 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 Name and number was also written on the patients whiteboard. Patient verbalized understanding of discussion. CM will follow-up with ongoing discharge and transition of care needs.
--- NOTE | 2018-08-28 16:04 | NUR ---
Nutrition Screen Note RD Recommendation for Physician: -Continue current diet. Plan of Care: RD following, monitoring for tolerance and adequacy Nutrition reason for involvement: Diagnosis- CHF Primary Diagnose(s): Chest pain, CHF PMH: Hypertension CHF A-Fib CAD Hyperlipedemia Ht: 67in Wt: 428 lb BMI: 67 kg/m2 IBW: [address] Assessment: (08/28) 47 YOM admitted for CHF with PMH listed above. Pt reports his appetite is currently good here in the hospital and it was stable at home as well prior to admission. Pt was educated on the heart healthy diet and given educational handouts. Pt verbalized understanding. Pt denied N/V/C/D, or any chewing or swallowing issues. Pt had no other questions or concerns. Chart reviewed. Labs and meds reviewed. Esaps-B-Cjtxprfbopd peptide- 359.8 Will continue to monitor. Current Diet: cardiac Malnutrition Evaluation (08/28) The patient does not meet criteria for a specified degree of malnutrition at this time. Will re-evaluate at follow-up as appropriate. Diet Education Needs Assessment: Diet education indicated, pt accepted education. Learner(s): pt Barriers: none Cultural/Language Modifications: none Readiness: acceptance Method: discussion and handout Topics: CHF, Heart healthy nutrition therapy Understanding/Compliance: verbalized understanding, anticipate fair compliance Nutrition Care Level: low Signed: Libia Williamson RD, LD
[2018-08-28 18:05] LABS: CLARITY,URINE SL CLOUDY (CLEAR); COLOR,URINE YELLOW (YELLOW); KETONES,URINE NEGATIVE (NEGATIVE); LEUKOCYTE ESTERASE ,URINE NEGATIVE (NEGATIVE); NITRITE,URINE NEGATIVE (NEGATIVE); PROTEIN,URINE DIPSTICK NEGATIVE (NEGATIVE)
[2018-08-28 18:06] LABS: BILIRUBIN,URINE NEGATIVE (NEGATIVE); URINE UROBILINOGEN 0.2 mg/dL (0.2 - 1)
[2018-08-28 18:18] LABS: BACTERIA,URINE FEW /HPF; RBC,URINE 0-5 /HPF (0-5)
--- NOTE | 2018-08-28 19:00 | NUR ---
received report from day nurse. patient is resting comfortably in bed. patient is not complaining of any pain or discomfort. patient has oxygen via the nasal cannula. telemtery box is attached to the patient. bed is in lowest position and call light is within reach. will continue to monitor patient.
[2018-08-28] MEDS: RIVAROXABAN 20 MG TABLET PO SCH (21:42)
--- NOTE | 2018-08-29 01:04 | Consultation ---
DATE OF CONSULTATION: 08/28/2018 Cardiac Consultation. REASON FOR THE CONSULTATION: Congestive heart failure. HISTORY: A 47-year-old gentleman, morbidly obese. The patient is poorly historian. He is clueless about his health problem. He used to be followed in [facility]. The patient came to here because he cannot breath. He does have chest discomfort. The patient is not feeling well. He said he got fluid in his heart. He did have headache. He was not really doing well at all. He came to this hospital and he is having severe shortness of breath and chest tightness. The patient admitted for further management and cardiac consultation is obtained. I visited, the patient is clueless about his health problem. He does have history of atrial fibrillation of many years duration, morbid obesity, obstructive sleep apnea, chronic atrial fibrillation, hypertension, hyperlipidemia, hypothyroidism, chronic venous insufficiency, status post bilateral vein stripping, venous ulcer in the past. The patient's initial workup revealed his BNP was only at 359. His cardiac enzymes were normal. His BUN and creatinine at 22 and 1.1. 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 He takes his medication, but sometime he forgets them. He is having severe shortness of breath of recent onset for the last few days. There is probably a pleuritic component of chest pain. He does have orthopnea. He does have paroxysmal nocturnal dyspnea. He does have swelling of the right lower extremities. He does have sleep apnea. The patient really is clueless about his health problem. REVIEW OF SYSTEMS: Extensive to all systems, will be summarized for clarity. GENERAL: No fever. No chills. HEENT: Unremarkable. CARDIAC AND PULMONARY: As per acute illness. GI: Bloating, indigestion. : Increased frequency of urination. MUSCULOSKELETAL: Aches and pains in several joints. EXTREMITIES: Lower extremity, chronic leg swelling. HOME MEDICATIONS: Digoxin 0.125 mg a daily, Lipitor 40 mg a day, Lasix 60 mg a day, Zestril 20 mg a day, Toprol-XL 50 mg a day, Xarelto 20 mg a day, allopurinol 100 mg a day. ALLERGIES: NONE. PAST MEDICAL HISTORY: 1. Morbid obesity. 2. Hypertension. 3. Hyperlipidemia. 4. Hypothyroidism. 5. Chronic atrial fibrillation. 6. Chronic venous insufficiency and ulcers. 7. Obstructive sleep apnea. 8. Cholecystectomy. 9. Bilateral vein ablations surgery. FAMILY HISTORY: Father is doing well. Mother with diabetes mellitus and kidney disease. He does have one brother and two sisters, he claim they are healthy and three healthy children. SOCIAL HISTORY: He is . He is smoker. He drinks alcohol occasionally socially. 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 PHYSICAL EXAMINATION: VITAL SIGNS: Morbidly obese gentleman with height of 5 feet 7 inches, weight of 430 pounds. Blood pressure 140/70, heart rate of 80 and irregularly irregular with atrial fibrillation. NECK: No elevation of jugular venous pulsation. CHEST: Decreased air entry in both bases. HEART: PMI not palpable. Irregularly regular rate. Distant heart sound. ABDOMEN: Obese. EXTREMITIES: Severe bilateral edema and severe skin changes. NEUROLOGIC: Nonfocal. LAB DATA: Sodium of 138, potassium 4.3, BUN 22, creatinine of 1.1, glucose of 144. White blood cell count of 10.5, hemoglobin of 13.1, hematocrit 44%, platelet count of 216,000. EKG showing atrial fibrillation with heart rate of 100 per minute, nonspecific ST changes. IMPRESSION AND PLAN: 1. Morbid obesity. 2. Obstructive sleep apnea. 3. Hypertension. 4. Atrial fibrillation. 5. Chronic venous stasis, status post prior surgical vein ablation. 6. Reason for admission: Shortness of breath and chest pain. Most likely differential diagnosis are the patient has right-sided heart failure, pulmonary hypertension, and right-sided heart failure. Other differential diagnosis definitely: Coronary artery disease, however, his cardiac enzymes are normal. Systolic heart failure is plausible, but his BNP is relatively normal, for his big size and his atrial fibrillation it is only at 359. Other differential diagnosis is definitely pulmonary embolism. The patient misses Xarelto frequently. He is morbidly obese and type of his work. RECOMMENDATIONS: Treatment with oral anticoagulation. The patient already on Xarelto and is approved by his insurance, so we will maintain it. This would be good to prevent him from developing pulmonary embolism or if he have one, it would be also good for his chronic atrial fibrillation. Diuretics and beta-tania will be good for multiple problem including his right-sided failure and pulmonary hypertension. Regardless, because of the patient's size and the condition, no further cardiac test will be done. Dhruv V/Q scan, he will not fit in the machine or CAT scan. My recommendation is medical therapy with beta-tania, oral anticoagulation, statin. Per our review, his echocardiogram hopefully it will be of reasonable quality. A consultation with bariatric surgeon will be warranted because that is his only hope to have a meaningful life and to do well. I will follow the patient's progression with you. I would like to thank you for the kind referral. MD SRIRAM Arvizu/MODL /[id number]
[2018-08-29 04:00] VITALS: BP 128/80
[2018-08-29 05:25] LABS: BASOPHILS % 0.1 % (0.0-1.0); HEMATOCRIT 47.4 % (38.2-49.6); HEMOGLOBIN 14.4 g/dL (14.0-18.0); LYMPHOCYTES # (AUTO) 1.4 (1.0-3.2); LYMPHOCYTES % 6.7 % (18.0-39.1); MEAN CORPUSCULAR HEMOGLOBIN 26.8 pg (28-32); MEAN CORPUSCULAR HGB CONC 30.4 g/dL (31-35); MEAN CORPUSCULAR VOLUME 88.3 fL (81-99); MONOCYTES # (AUTO) 1.4 (0.2-0.8); MONOCYTES % 6.7 % (4.4-11.3); NEUTROPHILS % 85.7 % (38.7-80.0); PLATELET COUNT 254 x10e3/uL (140-360); RED BLOOD COUNT 5.37 x10e6/uL (4.3-5.7)
[2018-08-29] MEDS: LEVOTHYROXINE SODIUM 25 MCG TABLET PO SCH (05:46)
[2018-08-29 06:01] LABS: CREATINE KINASE MB 3.1 ng/mL (0-5.0)
[2018-08-29 06:38] LABS: ANION GAP 12.4 mmol/L (8-16); BLOOD UREA NITROGEN 23 mg/dL (7-26); BUN/CREATININE RATIO 21 (6-25); CALCIUM 9.9 mg/dL (8.4-10.2); CARBON DIOXIDE 38 mmol/L (22-29); CHLORIDE 90 mmol/L (98-107); CREATININE, SERUM 1.08 mg/dL (0.72-1.25); EST GLOMERULAR FILTRATION RATE > 60 ML/MIN (60-); GLUCOSE 147 mg/dL (74-118); MAGNESIUM 2.2 MG/DL (1.3-2.1); PHOSPHORUS 3.8 MG/DL (2.3-4.7); POTASSIUM 4.4 mmol/L (3.5-5.1); SODIUM 136 mmol/L (136-145)
[2018-08-29 06:54] LABS: CHOL/HDL RATIO 2.9 (3.9-4.7)
--- NOTE | 2018-08-29 07:15 | NUR ---
report given to day nurse. patient is resting comfortably in bed. bed is in lowest position and call price is within reach.
--- NOTE | 2018-08-29 07:15 | NUR ---
pt alert and sitting at bedside, resp even and unlabored at this time, no c/o pain co c/o sob, call light in reach will cont to monitor.
[2018-08-29 07:28] VITALS: BP 136/74
[2018-08-29] MEDS: ALLOPURINOL 100 MG TAB PO SCH (08:47)
[2018-08-29] MEDS: FUROSEMIDE INJ 10 MG/ML 4 ML VIAL IV SCH ×2 (08:47→17:41)
[2018-08-29] MEDS: DIGOXIN 0.125 MG TAB PO SCH (08:47)
[2018-08-29] MEDS: METOPROLOL SUCCINATE 50 MG TAB XL PO SCH (08:47)
[2018-08-29] MEDS: LISINOPRIL 20 MG TAB PO SCH (08:47)
[2018-08-29 11:43] VITALS: BP 148/81
[2018-08-29 15:13] VITALS: BP 104/59
--- NOTE | 2018-08-29 18:50 | NUR ---
Got report from previous nurse. Call light within reach. Patient in bed
--- NOTE | 2018-08-29 19:06 | NUR ---
report given to oncoming nurse, for continued care.
[2018-08-29 20:35] VITALS: BP 117/83
[2018-08-29] MEDS: RIVAROXABAN 20 MG TABLET PO SCH (22:09)
[2018-08-30] VITALS: BP_SYST 117; BP_SYST 88; BP_DIAS 63; BP_DIAS 83
[2018-08-30 04:43] VITALS: BP 119/92
[2018-08-30] MEDS: LEVOTHYROXINE SODIUM 25 MCG TABLET PO SCH (06:11)
[2018-08-30 06:25] LABS: BASOPHILS # (AUTO) 0.1 (0.0-0.1); BASOPHILS % 0.5 % (0.0-1.0); EOSINOPHILS # (AUTO) 0.1 (0.0-0.4); EOSINOPHILS % 0.9 % (0.0-6.0); HEMATOCRIT 49.3 % (38.2-49.6); HEMOGLOBIN 14.7 g/dL (14.0-18.0); LYMPHOCYTES # (AUTO) 2.9 (1.0-3.2); LYMPHOCYTES % 21.3 % (18.0-39.1); MEAN CORPUSCULAR HEMOGLOBIN 26.9 pg (28-32); MEAN CORPUSCULAR HGB CONC 29.8 g/dL (31-35); MEAN CORPUSCULAR VOLUME 90.3 fL (81-99); MONOCYTES # (AUTO) 1.4 (0.2-0.8); MONOCYTES % 10.2 % (4.4-11.3); NEUTROPHILS # (AUTO) 9.2 (2.1-6.9); NEUTROPHILS % 66.3 % (38.7-80.0); PLATELET COUNT 238 x10e3/uL (140-360); RED BLOOD COUNT 5.46 x10e6/uL (4.3-5.7); RED CELL DISTRIBUTION WIDTH 14.2 % (11.7-14.4)
[2018-08-30 06:46] LABS: ALANINE AMINOTRANSFERASE 26 IU/L (0-55); ALBUMIN 3.2 g/dL (3.5-5.0); ALBUMIN/GLOBULIN RATIO 0.8 (0.8-2.0); ALKALINE PHOSPHATASE 113 IU/L (40-150); ANION GAP 12.6 mmol/L (8-16); BLOOD UREA NITROGEN 29 mg/dL (7-26); BUN/CREATININE RATIO 27 (6-25); CALCIUM 9.6 mg/dL (8.4-10.2); CARBON DIOXIDE 37 mmol/L (22-29); CHLORIDE 94 mmol/L (98-107); CREATININE, SERUM 1.07 mg/dL (0.72-1.25); EST GLOMERULAR FILTRATION RATE > 60 ML/MIN (60-); GLUCOSE 125 mg/dL (74-118); POTASSIUM 4.6 mmol/L (3.5-5.1); SODIUM 139 mmol/L (136-145)
--- NOTE | 2018-08-30 06:57 | NUR ---
Gave report to oncoming nurse. Patient in bed. Call light within reach.
[2018-08-30 08:13] VITALS: BP 139/72
[2018-08-30] MEDS: METOPROLOL SUCCINATE 50 MG TAB XL PO SCH (09:00)
[2018-08-30] MEDS: FUROSEMIDE INJ 10 MG/ML 4 ML VIAL IV SCH (09:00)
[2018-08-30] MEDS: ALLOPURINOL 100 MG TAB PO SCH (09:00)
[2018-08-30] MEDS: LISINOPRIL 20 MG TAB PO SCH (09:00)
[2018-08-30] MEDS ORDERED: LOSARTAN POTASSIUM 25 MG TAB PO SCH (09:00)
[2018-08-30] MEDS: DIGOXIN 0.125 MG TAB PO SCH (09:00)
[2018-08-30] MEDS ORDERED: LASIX40 MG PO (11:08)
[2018-08-30] MEDS ORDERED: COZAAR25 MG PO (11:08)
--- NOTE | 2018-08-30 11:31 | NUR ---
patient to be discharged after seen by head baker for diabetic education and case management for possible help getting a glucometer.
--- NOTE | 2018-08-30 11:53 | NUR ---
patient seen by packaging specialist for diabetic training. awaiting visit by case management then can be discharged home.
[2018-08-30 12:12] VITALS: BP 118/60
--- NOTE | 2018-08-30 12:44 | NUR ---
Nutrition Screen Note RD Recommendation for Physician: -Rec cardiac/ ADA 1800 diet as medically appropriate -RD provided diet education on new DM on 08/30. Plan of Care: RD following, monitoring for tolerance and adequacy Nutrition reason for involvement: RN consult new onset DM Primary Diagnose(s): Chest pain, CHF PMH: Hypertension, Afib, CAD, HLD, CHF Ht: 67in Wt: 428 lb BMI: 67 kg/m2 IBW: [address] Assessment: (08/30/2018) RD consulted for diet education for new onset DM. HbA1c at 6.7%. All questions have been answered. 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 (08/28) 47 YOM admitted for CHF with PMH listed above. Pt reports his appetite is currently good here in the hospital and it was stable at home as well prior to admission. Pt was educated on the heart healthy diet and given educational handouts. Pt verbalized understanding. Pt denied N/V/C/D, or any chewing or swallowing issues. Pt had no other questions or concerns. Chart reviewed. Labs and meds reviewed. [id number] peptide- 359.8 Will continue to monitor. Current Diet: cardiac Malnutrition Evaluation (08/28) The patient does not meet criteria for a specified degree of malnutrition at this time. Will re-evaluate at follow-up as appropriate. Diet Education Needs Assessment: Diet education indicated, pt accepted education. 08/28 Learner(s): pt Barriers: none Cultural/Language Modifications: none Readiness: acceptance Method: discussion and handout Topics: CHF, Heart healthy nutrition therapy Understanding/Compliance: verbalized understanding, anticipate fair compliance 08/30 Learner(s): pt Time spent: 25minutes Barriers: No barriers identified. Cultural/Language Modifications: No cultural/language modifications noted. Pt speaks Romanian. Readiness: Acceptance Method: Explanation and handout Topics: Carbohydrate exchanges, Carbohydrate counting handouts, Reading the nutrition label, meal planning tips, exercise tips, servings/portion sizes Understanding/Compliance: Expect fair understanding/compliance from pt. Will benefit from reinforcement. All questions have been answered. Nutrition Care Level: low Signed: Cori Chen, MS, RD, LD
--- NOTE | 2018-08-31 08:26 | Discharge Summary ---
HISTORY: Mr. Simon is a pleasant 47-year-old male, who began having central substernal chest pain about 12:30 a.m. on August 28 that was radiating to the upper chest and radiated at 5/10 on a 0-10 pain scale. There were no contributing factors; however, he did have shortness of breath, which was alleviated when fluids were removed with diuresis. Associated signs and symptoms include occipital headache 8/10 on August 27 along with anxiety. 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 PAST MEDICAL HISTORY: Significant for chronic atrial fibrillation, morbid obesity, hypertension, hyperlipidemia, hypothyroidism, venous ulcer, chronic venous insufficiency, obstructive sleep apnea with previous use of CPAP at night. Five or six years ago, he had a "pre-heart attack" with similar signs and symptoms. PAST SURGICAL HISTORY: Includes probable radiofrequency ablation in both lower extremities and he has had cholecystectomy. FAMILY HISTORY: His mother had diabetes and chronic kidney disease. Father had heart problems. SOCIAL HISTORY: He smoked 1 pack per day of cigarettes for 2 years, then about a fifth of pack per day for 20 years. He says he drinks alcohol occasionally or socially. He has a distant history of marijuana use when he was younger. ALLERGIES: NO KNOWN ALLERGIES. ADMITTING DIAGNOSES: Include: 1. Chest pain. 2. Hypertension, complicated by acute systolic congestive heart failure. 3. Systolic congestive heart failure, acute. 4. Acute leukocytosis. 5. Chronic atrial fibrillation with heart rate controlled. 6. Morbid obesity with BMI 67. 7. Hyperlipidemia. 8. Hypothyroidism. DISCHARGE DIAGNOSES: Include: 1. Chest pain, improved. 2. Hypertension, complicated by right-sided congestive heart failure. 3. Right-sided congestive heart failure, acute with probable pulmonary hypertension. 4. 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 5. Acute leukocytosis due to steroids. 6. Chronic atrial fibrillation with heart rate control. 7. Type 2 diabetes mellitus. 8. Super morbid obesity with BMI of 67. 9. Hyperlipidemia. 10. Hypothyroidism. LABORATORY DATA: On admission, BUN 22, creatinine 1.16. WBCs 10.5, hemoglobin 13.1, hematocrit 44.2. B-type natriuretic peptide 359.8. Digoxin level was less than 0.30. During his stay, the creatine kinase was 334, then 335, then 166. His CK-MB was 3.5, then 3.8, then 3.1. Troponin I 0.013, then 0.001, then 0.009. We checked his TSH, it was 0.553. Phosphorus 3.8, magnesium 2.2. Hemoglobin A1c 6.7% giving him a new diagnosis of diabetes. On admission, 12-lead EKG showed atrial fibrillation with RVR with a heart rate of 102. Echocardiogram showed ejection fraction of 40%-45% with moderate mitral regurgitation. During his stay, Lasix was continued; however, changed from p.o. to IV. His shortness of breath subsequently improved. The PA and lateral chest x-ray on admission had shown central vascular congestion. He is likely a little bit fluid overloaded and improved with diuresis. He has decreased dyspnea. Still has dyspnea on exertion likely due to his size. He has been advised to make an appointment and did so to have a Bariatric Surgery with Dr. Mireles. CONSULTANTS: On the case include Dr. Nadine Perez. Dr. Maxime Mireles was also consulted; however, the patient will need to follow up on an outpatient with them. The probable cause of the white blood cell count increasing from 10.54 to 21 is likely due to a dose of steroids given either in the ER or just after ER. Vital signs have been stable. Sometimes, the heart rate dips into the 50s. The patient is slightly hypoxic when flat. His cough is improving. He has no complaints this morning other than a mild cough. Telemetry shows atrial fibrillation with a heart rate of 80. We will continue same medications including prescription for Lasix 40 mg b.i.d., Cozaar 12.5 mg p.o. daily. He is also on metoprolol succinate 50 mg p.o. daily, lisinopril 20 mg p.o. daily, levothyroxine sodium 25 mcg daily, losartan 12.5 mg daily, allopurinol 100 mg daily, and digoxin 0.125 mg daily. ACTIVITY LEVEL: As tolerated. DIET: He has been on a cardiac diet here. We will advise 1800-calorie ADA diet on discharge. FOLLOWUP: The patient is to follow up with his PCP, Dr. 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 Dictated by Amado W Messi, AGRICULTURE LABORER MD GHANSHYAM Boyd/BRANDEE /[id number]
== END 2018-08-30 14:32 | disposition home or self-care (01) ==
LOC: ER 03:09 → ERHOLD 04:49 → IMCU 05:23
PROVIDERS: ADMIT Internal Medicine; ATTEND Internal Medicine
DX: I11.0 Hypertensive heart disease with heart failure (principal); I50.23 Acute on chronic systolic (congestive) heart failure; I48.2 Chronic atrial fibrillation; Z79.01 Long term (current) use of anticoagulants; E66.01 Morbid (severe) obesity due to excess calories; Z68.44 Body mass index [BMI] 60.0-69.9, adult; E03.9 Hypothyroidism, unspecified; E78.5 Hyperlipidemia, unspecified; D72.829 Elevated white blood cell count, unspecified; I50.43 Acute on chronic combined systolic (congestive) and diastolic (congestive) heart failure; E11.9 Type 2 diabetes mellitus without complications; I50.813 Acute on chronic right heart failure; I87.2 Venous insufficiency (chronic) (peripheral); G47.33 Obstructive sleep apnea (adult) (pediatric); Z90.49 Acquired absence of other specified parts of digestive tract
CPT/HCPCS: 36415; 71046; 80048; 80053; 80061; 80162; 81001; 82550; 82553; 82948; 83036; 83735; 83880; 84100; 84443; 84484; 85025; 93005; 93306; 94640; 96374; 99284; G0378; J1940; J2930

== ENCOUNTER 2018-11-09 15:34 | Emergency (ER) | payer OTHER ==
[~2018-11-09] VITALS: Ht 170.2 cm; Wt 194.1 kg
[~2018-11-09 15:34] MED LIST: ALLOPURINOL100 MG PO; ATORVASTATIN CA40 MG PO; COZAAR25 MG PO; DIGOXIN125 MCG PO; FUROSEMIDE40 MG PO; LASIX40 MG PO; LEVOTHYROXINE25 MCG PO; LISINOPRIL20 MG PO; METOPROLOL SUCC50 MG PO; SPIRONOLACTONE25 MG PO; XARELTO20 MG PO
[2018-11-09] MEDS ORDERED: SODIUM CHLORIDE 0.9% 1000ML 1,000 ML IV STA (15:50)
[2018-11-09] MEDS ORDERED: DIAZEPAM 5 MG TAB PO NR (16:00)
[2018-11-09] MEDS ORDERED: FAMOTIDINE 20 MG/2 ML VIAL IV NR (16:00)
[2018-11-09] MEDS ORDERED: PROMETHAZINE 12.5MG/ NACL 0.9% 12.5 MG/50 ML BAG IV ONE (16:00)
[2018-11-09] MEDS ORDERED: DEXAMETHASONE SOD PHOS 10 MG/1 ML VIAL IV NR (16:00)
[2018-11-09] MEDS ORDERED: HYDROCODONE/APAP 5MG-325MG TAB PO NR (16:00)
[2018-11-09] MEDS ORDERED: KETOROLAC TROMETHAMINE 60 MG/2 ML VIAL IV NR (16:00)
[2018-11-09 16:21] LABS: BASOPHILS % 0.5 % (0.0-1.0); EOSINOPHILS # (AUTO) 0.3 (0.0-0.4); EOSINOPHILS % 3.6 % (0.0-6.0); HEMATOCRIT 43.4 % (38.2-49.6); HEMOGLOBIN 13.6 g/dL (14.0-18.0); LYMPHOCYTES # (AUTO) 1.5 (1.0-3.2); LYMPHOCYTES % 17.5 % (18.0-39.1); MEAN CORPUSCULAR HEMOGLOBIN 27.6 pg (28-32); MEAN CORPUSCULAR HGB CONC 31.3 g/dL (31-35); MEAN CORPUSCULAR VOLUME 88.2 fL (81-99); MONOCYTES # (AUTO) 0.8 (0.2-0.8); MONOCYTES % 9.7 % (4.4-11.3); NEUTROPHILS # (AUTO) 5.9 (2.1-6.9); PLATELET COUNT 165 x10e3/uL (140-360); RED BLOOD COUNT 4.92 x10e6/uL (4.3-5.7); RED CELL DISTRIBUTION WIDTH 15.9 % (11.7-14.4)
--- NOTE | 2018-11-09 16:23 | NUR ---
MEDS GIVEN PER DR'S ORDERS AND PT HAS TOLERATED WELL
[2018-11-09 16:47] LABS: ALANINE AMINOTRANSFERASE 20 IU/L (0-55); ALBUMIN 3.2 g/dL (3.5-5.0); ALBUMIN/GLOBULIN RATIO 0.9 (0.8-2.0); ALKALINE PHOSPHATASE 97 IU/L (40-150); ANION GAP 10.2 mmol/L (8-16); BLOOD UREA NITROGEN 18 mg/dL (7-26); BUN/CREATININE RATIO 23 (6-25); CALCIUM 9.1 mg/dL (8.4-10.2); CARBON DIOXIDE 29 mmol/L (22-29); CHLORIDE 104 mmol/L (98-107); EST GLOMERULAR FILTRATION RATE > 60 ML/MIN (60-); GLUCOSE 114 mg/dL (74-118); POTASSIUM 4.2 mmol/L (3.5-5.1); SODIUM 139 mmol/L (136-145)
--- NOTE | 2018-11-09 16:58 | NUR ---
CT called stated pt was placed on the CT table and it wasnt moving and unable to preform CT. Asked ER MD if he wanted to order an x-ray. Verbal order with read back for Lumbar spine 2-3 view.
--- NOTE | 2018-11-09 17:48 | Diagnostic Imaging Report ---
EXAM: lumbar spine, 2 view, AP and supine lateral DATE: 11/09/2018 INDICATION: Lower back pain COMPARISON: None FINDINGS: There are age indeterminate compression fractures of T11, T12, and L1. Multilevel degenerative changes. AP image including the abdomen demonstrates nonobstructive bowel gas pattern and cholecystectomy clips. IMPRESSION: Age-indeterminate compression fractures of T11, T12 and L1. Signed by: Wagner Graves MD on 11/09/2018 5:44 PM
[2018-11-09] MEDS: HYDROMORPHONE 2MG/ML 2 MG/ML ML IV PRN ×2 (18:42→23:22)
--- NOTE | 2018-11-09 18:42 | NUR ---
UPON ENTERING PT'S ROOM, PT. ROLLED OVER ON THE STRETCHER, MOVING ALL EXTREMITIES. MEDICATED FOR PAIN WITH 1MG IV DILAUDID PER DR'S ORDERS
[2018-11-09] MEDS ORDERED: LACTATED RINGER'S 1,000 ML IV SCH (18:48)
[2018-11-09] MEDS ORDERED: HYDROCODONE/APAP 7.5MG-325MG 1 EA TAB PO PRN (19:00)
[2018-11-09] MEDS ORDERED: HYDROMORPHONE 2MG/ML 2 MG/ML ML IV PRN (19:00)
[2018-11-09] MEDS ORDERED: ONDANSETRON HCL INJ 2MG/ML 2ML 2 MG/ML VIAL IV PRN (19:00)
[2018-11-09] MEDS ORDERED: ZOLPIDEM TARTRATE 5 MG TAB PO PRN (19:00)
[2018-11-09] MEDS ORDERED: DIPHENHYDRAMINE HCL INJ 50 MG/ML VIAL IV PRN (19:00)
--- NOTE | 2018-11-09 20:10 | NUR ---
REPORT GIVEN TO DAVE FELIPE RN FOR CONTNUITY OF CARE
--- NOTE | 2018-11-09 20:39 | NUR ---
VITALS UPDATED AND PT REQUESTING FOOD/DRINK. INFORMED PT. TO NOT EAT OR DRINK 'TIL FURTHER TESTING DONE.
--- NOTE | 2018-11-09 21:00 | NUR ---
[facility] UNABLE TO ACCEPT TRANSFER PATIENT EXCEEDS WEIGHT CAPACITY FOR MRI
--- NOTE | 2018-11-09 21:51 | NUR ---
URINE OBTAINED AND SENT TO LAB FOR ANALYSIS PER MD ORDERS
[2018-11-09 21:54] LABS: BILIRUBIN,URINE NEGATIVE (NEGATIVE); CLARITY,URINE CLEAR (CLEAR); COLOR,URINE YELLOW (YELLOW); KETONES,URINE NEGATIVE (NEGATIVE); LEUKOCYTE ESTERASE ,URINE NEGATIVE (NEGATIVE); NITRITE,URINE NEGATIVE (NEGATIVE); PROTEIN,URINE DIPSTICK NEGATIVE (NEGATIVE); URINE UROBILINOGEN 1 mg/dL (0.2 - 1)
[2018-11-09 22:08] LABS: BACTERIA,URINE FEW /HPF; EPITHELIAL CELLS,URINE FEW /LPF; MUCUS,URINE MANY (RARE); RBC,URINE 0-5 /HPF (0-5); WBC,URINE (MAN) 0-5 /HPF (0-5)
--- NOTE | 2018-11-10 00:15 | NUR ---
REPORT CALLED TO MIGUEL ÁNGEL AT THIS TIME.
--- NOTE | 2018-11-10 00:16 | NUR ---
[facility]S HERE AT THIS TIME FOR TRANSPORT TO [facility].
[2018-11-10] MEDS ORDERED: FAMOTIDINE 20 MG/2 ML VIAL IV SCH (09:00)
== END 2018-11-10 00:46 | disposition short-term general hospital (02) ==
LOC: ER 15:34
DX: M54.6 Pain in thoracic spine (principal); M54.5 Low back pain; S22.080A Wedge compression fracture of T11-T12 vertebra, initial encounter for closed fracture; S32.010A Wedge compression fracture of first lumbar vertebra, initial encounter for closed fracture; W22.8XXA Striking against or struck by other objects, initial encounter; Y93.01 Activity, walking, marching and hiking; I10 Essential (primary) hypertension; E78.5 Hyperlipidemia, unspecified; E03.9 Hypothyroidism, unspecified; M10.9 Gout, unspecified
CPT/HCPCS: 36415; 72100; 80053; 81001; 85025; 93005; 96374; 96375; 99284; J1100; J1885; J2405; J2550; J7030

== ENCOUNTER 2019-02-26 00:10 | Emergency (ER) | payer OTHER ==
[~2019-02-26] VITALS: Ht 170.2 cm; Wt 194.1 kg
--- NOTE | 2019-02-26 03:26 | Diagnostic Imaging Report ---
X-RAY RIGHT KNEE 2 VIEWS HISTORY: Pain. COMPARISON: None available. FINDINGS: Bones: No acute displaced fracture. Osseous alignment is within normal limits. Joints: The joint spaces are well-maintained. Probable moderate right knee effusion. Soft tissues: The soft tissues appear unremarkable. IMPRESSION: A right knee effusion is suspected. No acute radiographic osseous abnormalities. Signed by: Yasmany Bradshaw DO on 02/26/2019 3:22 AM
[2019-02-26] MEDS ORDERED: HYDROCODONE/APAP 5MG-325MG TAB PO ONE (03:30)
== END 2019-02-26 04:36 | disposition home or self-care (01) ==
LOC: ER 00:10
DX: M25.562 Pain in left knee (principal); M25.462 Effusion, left knee; M10.062 Idiopathic gout, left knee; I10 Essential (primary) hypertension; E78.5 Hyperlipidemia, unspecified; E03.9 Hypothyroidism, unspecified
CPT/HCPCS: 99283

== ENCOUNTER 2019-03-27 14:15 | Emergency (ER) | payer OTHER ==
[~2019-03-27] VITALS: Ht 170.2 cm; Wt 186.9 kg
[2019-03-27] MEDS ORDERED: DEXAMETHASONE SOD PHOS 10 MG/1 ML VIAL IM NR (15:00)
[2019-03-27] MEDS ORDERED: HYDROCODONE/APAP 10MG-325MG TAB PO NR (15:00)
[2019-03-27] MEDS ORDERED: INDOMETHACIN 75 MG CAPCR PO NR (15:00)
--- NOTE | 2019-03-27 15:20 | Diagnostic Imaging Report ---
EXAM: KNEE LEFT THREE VIEWS DATE: 03/27/2019 2:45 PM INDICATION: Left knee pain COMPARISON: 02/26/2019 (please note that the prior examination was labeled with a right marker; however, images were of the left knee has confirmed by the technologist). FINDINGS: There is no evidence for acute fracture or dislocation. Bony mineralization is within normal limits. No focal lytic or blastic abnormality is identified. There is at most mild femorotibial joint space narrowing. The patellofemoral joint spaces are preserved. The surrounding soft tissues are unremarkable without evidence for radiopaque foreign body. IMPRESSION: No acute radiographic abnormality identified within the left knee. Signed by: Dr. Srinivasa Palm MD on 03/27/2019 3:17 PM
[2019-03-27] MEDS ORDERED: INDOMETHACIN 25 MG CAP PO ONE (16:00)
== END 2019-03-27 17:53 | disposition home or self-care (01) ==
LOC: ER 14:15
DX: M25.562 Pain in left knee (principal); M10.062 Idiopathic gout, left knee; R26.2 Difficulty in walking, not elsewhere classified; I10 Essential (primary) hypertension; E78.5 Hyperlipidemia, unspecified; E03.9 Hypothyroidism, unspecified
CPT/HCPCS: 73562; 99284; J1100

== ENCOUNTER 2021-12-14 00:58 | Emergency (ER) | payer OTHER ==
[~2021-12-14] VITALS: Ht 170.2 cm; Wt 186.9 kg
== END 2021-12-14 02:00 | disposition home or self-care (01) ==
LOC: ER 01:13
DX: I83.892 Varicose veins of left lower extremity with other complications (principal); S80.812A Abrasion, left lower leg, initial encounter; W54.1XXA Struck by dog, initial encounter; Y92.89 Other specified places as the place of occurrence of the external cause; I10 Essential (primary) hypertension; E78.5 Hyperlipidemia, unspecified; E03.9 Hypothyroidism, unspecified; I73.9 Peripheral vascular disease, unspecified; M10.9 Gout, unspecified
CPT/HCPCS: 99283

== ENCOUNTER 2023-11-29 15:55 | Inpatient (IN) | payer OTHER ==
[~2023-11-29] VITALS: Ht 167.6 cm; Wt 120.2 kg
[~2023-11-29 15:55] MED LIST changes: +FUROSEMIDE20 MG PO
[2023-11-29 16:01] VITALS: PULSE 85; RESP 18; TEMP 97.3
[2023-11-29 16:28] LABS: BASOPHILS % 0.6 % (0.0-1.0); EOSINOPHILS # (AUTO) 0.1 (0.0-0.4); EOSINOPHILS % 1.1 % (0.0-6.0); HEMATOCRIT 42.6 % (38.2-49.6); HEMOGLOBIN 13.2 g/dL (14.0-18.0); LYMPHOCYTES # (AUTO) 1.9 (1.0-3.2); LYMPHOCYTES % 29.5 % (18.0-39.1); MEAN CORPUSCULAR VOLUME 87.1 fL (81-99); MONOCYTES # (AUTO) 0.8 (0.2-0.8); MONOCYTES % 12.3 % (4.4-11.3); NEUTROPHILS # (AUTO) 3.7 (2.1-6.9); NEUTROPHILS % 56.2 % (38.7-80.0); PLATELET COUNT 184 x10e3/uL (140-360); RED BLOOD COUNT 4.89 x10e6/uL (4.3-5.7); RED CELL DISTRIBUTION WIDTH 15.9 % (11.7-14.4)
[2023-11-29 16:32] LABS: INR 1.62; PROTHROMBIN TIME 20.3 seconds (11.9-14.5)
[2023-11-29 16:33] LABS: PARTIAL THROMBOPLASTIN TIME 33.1 seconds (23.8-35.5)
[2023-11-29 16:40] LABS: ALBUMIN 3.2 g/dL (3.5-5.0); ALBUMIN/GLOBULIN RATIO 0.8 (0.8-2.0); ANION GAP 13.1 mmol/L (8-16); BILIRUBIN,TOTAL 1.7 mg/dL (0.2-1.2); CALCIUM 9.2 mg/dL (8.4-10.2); CREATININE, SERUM 1.34 mg/dL (0.72-1.25); MAGNESIUM 2.1 MG/DL (1.3-2.1); POTASSIUM 4.1 mmol/L (3.5-5.1)
[2023-11-29 16:46] LABS: TROPONIN I 0.077 ng/mL (0-0.300)
[2023-11-29] MEDS: DILTIAZEM HCL 5 MG/ML 5 ML VIAL IV STA (17:12)
[2023-11-29 18:38] LABS: BILIRUBIN,URINE NEGATIVE (NEGATIVE); CLARITY,URINE SL CLOUDY (CLEAR); COLOR,URINE YELLOW (YELLOW); GLUCOSE, URINE NEGATIVE (NEGATIVE); KETONES,URINE NEGATIVE (NEGATIVE); LEUKOCYTE ESTERASE ,URINE NEGATIVE (NEGATIVE); NITRITE,URINE NEGATIVE (NEGATIVE); PH,URINE 6.5 (5 - 7); PROTEIN,URINE DIPSTICK NEGATIVE (NEGATIVE); URINE UROBILINOGEN 4 mg/dL (0.2 - 1)
[2023-11-29] MEDS ORDERED: ONDANSETRON HCL INJ 2MG/ML 2ML 2 MG/ML VIAL IV PRN (18:45)
[2023-11-29] MEDS ORDERED: Morphine 2mg Syringe 2 MG/ML SYR IV PRN (18:45)
[2023-11-29 18:50] LABS: BACTERIA,URINE FEW /HPF; TRANSITIONAL EPI CELLS,URINE FEW
[2023-11-29] MEDS: ENOXAPARIN SODIUM INJ 100 MG/ML SYR SC ONE (19:28)
[2023-11-29] MEDS: FUROSEMIDE INJ 10 MG/ML 2 ML VIAL IV ONE (19:29)
[2023-11-29] MEDS: FAMOTIDINE 20 MG/2 ML VIAL IV SCH (19:29)
[2023-11-29] MEDS: DIGOXIN INJ 0.25 MG/ML 2 ML AMP IV ONE (19:30)
[2023-11-29] MEDS: METOPROLOL TARTRATE 25 MG TAB PO SCH (19:30)
[2023-11-29 21:05] VITALS: BP 124/97; PULSE 80; RESP 18; TEMP 97.5; O2SAT 97
[2023-11-29] MEDS ORDERED: LASIX20 MG PO (23:22)
[2023-11-29 23:44] VITALS: BP 128/100; PULSE 72; RESP 18; TEMP 97.6; O2SAT 98
[2023-11-30] VITALS (8 sets, daily range): BP systolic 110–148; BP diastolic 89–99; PULSE 51–109; RESP 18–19; TEMP 97.5–98.2; O2SAT 98–100
[2023-11-30 05:30] LABS: BASOPHILS # (AUTO) 0.1 (0.0-0.1); BASOPHILS % 1.2 % (0.0-1.0); EOSINOPHILS # (AUTO) 0.1 (0.0-0.4); EOSINOPHILS % 2.4 % (0.0-6.0); HEMATOCRIT 42.1 % (38.2-49.6); LYMPHOCYTES # (AUTO) 1.9 (1.0-3.2); MEAN CORPUSCULAR HEMOGLOBIN 26.9 pg (28-32); MEAN CORPUSCULAR HGB CONC 30.9 g/dL (31-35); MONOCYTES # (AUTO) 0.7 (0.2-0.8); MONOCYTES % 12.4 % (4.4-11.3); NEUTROPHILS # (AUTO) 3.1 (2.1-6.9); NEUTROPHILS % 51.7 % (38.7-80.0); PLATELET COUNT 192 x10e3/uL (140-360); RED BLOOD COUNT 4.84 x10e6/uL (4.3-5.7); RED CELL DISTRIBUTION WIDTH 15.9 % (11.7-14.4)
[2023-11-30 05:57] LABS: ALBUMIN 2.9 g/dL (3.5-5.0); ALBUMIN/GLOBULIN RATIO 0.8 (0.8-2.0); BILIRUBIN,TOTAL 1.4 mg/dL (0.2-1.2); CALCIUM 8.8 mg/dL (8.4-10.2); CHOL/HDL RATIO 3.1 (3.9-4.7); CREATININE, SERUM 1.24 mg/dL (0.72-1.25); TOTAL PROTEIN 6.5 g/dL (6.5-8.1)
[2023-11-30 06:24] LABS: TROPONIN I 0.06 ng/mL (0-0.300)
[2023-11-30] MEDS: FUROSEMIDE INJ 10 MG/ML 4 ML VIAL IV SCH (10:31)
[2023-11-30] MEDS: METOPROLOL SUCCINATE 50 MG TAB XL PO SCH (10:31)
[2023-11-30] MEDS: ALLOPURINOL 100 MG TAB PO SCH (10:31)
[2023-11-30] MEDS: LISINOPRIL 2.5 MG TAB PO SCH (10:31)
[2023-11-30] MEDS: SPIRONOLACTONE 25 MG TAB PO SCH (10:31)
[2023-11-30] MEDS: LEVOTHYROXINE SODIUM 25 MCG TABLET PO SCH (10:37)
[2023-11-30 11:59] LABS: TROPONIN I 0.056 ng/mL (0-0.300)
[2023-11-30] MEDS ORDERED: ONDANSETRON HCL 4 MG ORAL DISINTEGRATING TAB PO PRN (14:30)
[2023-11-30] MEDS: RIVAROXABAN 20 MG TABLET PO SCH (16:58)
[2023-12-01 04:00] VITALS: BP 110/85; PULSE 92; RESP 18; TEMP 97.7; O2SAT 100
[2023-12-01 07:04] LABS: BASOPHILS # (AUTO) 0.1 (0.0-0.1); BASOPHILS % 0.7 % (0.0-1.0); EOSINOPHILS # (AUTO) 0.2 (0.0-0.4); EOSINOPHILS % 2.4 % (0.0-6.0); HEMATOCRIT 45.3 % (38.2-49.6); HEMOGLOBIN 14.1 g/dL (14.0-18.0); LYMPHOCYTES # (AUTO) 1.9 (1.0-3.2); LYMPHOCYTES % 25.2 % (18.0-39.1); MEAN CORPUSCULAR HEMOGLOBIN 26.8 pg (28-32); MEAN CORPUSCULAR HGB CONC 31.1 g/dL (31-35); MEAN CORPUSCULAR VOLUME 86.1 fL (81-99); MONOCYTES # (AUTO) 0.9 (0.2-0.8); MONOCYTES % 11.9 % (4.4-11.3); NEUTROPHILS # (AUTO) 4.5 (2.1-6.9); NEUTROPHILS % 59.4 % (38.7-80.0); PLATELET COUNT 213 x10e3/uL (140-360); RED BLOOD COUNT 5.26 x10e6/uL (4.3-5.7); RED CELL DISTRIBUTION WIDTH 15.8 % (11.7-14.4); WHITE BLOOD COUNT 7.55 x10e3/uL (4.8-10.8)
[2023-12-01 07:28] LABS: ANION GAP 13.4 mmol/L (8-16); CALCIUM 8.8 mg/dL (8.4-10.2); CREATININE, SERUM 1.43 mg/dL (0.72-1.25)
[2023-12-01 07:31] LABS: POTASSIUM 3.4 mmol/L (3.5-5.1)
[2023-12-01 07:51] VITALS: BP 121/102; PULSE 87; RESP 15; TEMP 98.1; O2SAT 99
[2023-12-01 08:00] VITALS: BP 121/102; PULSE 87; RESP 15; TEMP 98.1; O2SAT 99
[2023-12-01 08:52] VITALS: PULSE 82; RESP 16; O2SAT 96
[2023-12-01 12:03] VITALS: BP 108/92; PULSE 108; RESP 17; TEMP 97.6; O2SAT 100
[2023-12-01] MEDS ORDERED: XARELTO10 MG PO (14:24)
[2023-12-01] MEDS ORDERED: LISINOPRIL2.5 MG PO (14:24)
[2023-12-01] MEDS ORDERED: ALDACTONE25 MG PO (14:24)
[2023-12-01] MEDS ORDERED: FUROSEMIDE40 MG PO (14:24)
[2023-12-01 15:41] VITALS: BP 119/102; PULSE 67; RESP 18; TEMP 97.8; O2SAT 100
[2023-12-02] MEDS ORDERED: FUROSEMIDE 40 MG TAB PO SCH (09:00)
== END 2023-12-01 16:37 | disposition home or self-care (01) | DRG 291 ==
LOC: ER 16:04 → ERHOLD 18:43 → MED/SURG 21:05
PROVIDERS: ADMIT Internal Medicine; ATTEND Internal Medicine
DX: I13.0 Hypertensive heart and chronic kidney disease with heart failure and stage 1 through stage 4 chronic kidney disease, or unspecified chronic kidney disease (principal); I50.23 Acute on chronic systolic (congestive) heart failure; N17.9 Acute kidney failure, unspecified; I48.11 Longstanding persistent atrial fibrillation; Z68.41 Body mass index [BMI] 40.0-44.9, adult; Z79.01 Long term (current) use of anticoagulants; N18.30 Chronic kidney disease, stage 3 unspecified; I73.9 Peripheral vascular disease, unspecified; E78.5 Hyperlipidemia, unspecified; R00.0 Tachycardia, unspecified; E03.9 Hypothyroidism, unspecified; I83.93 Asymptomatic varicose veins of bilateral lower extremities; I87.8 Other specified disorders of veins; Z87.891 Personal history of nicotine dependence; Z71.3 Dietary counseling and surveillance; Z98.84 Bariatric surgery status; I08.1 Rheumatic disorders of both mitral and tricuspid valves; M10.9 Gout, unspecified; Z91.148 Patient's other noncompliance with medication regimen for other reason; Z11.52 Encounter for screening for COVID-19; Z79.899 Other long term (current) drug therapy
CPT/HCPCS: 36415; 70450; 71045; 80048; 80053; 80061; 80162; 81001; 82550; 83735; 83880; 84484; 85025; 85610; 85730; 93005; 93306; 94799; 99284; J1160; J1650; J1940; U0002